=== PATIENT | female | born 1945 | race Caucasian/White ===

== ENCOUNTER → 2018-04-12 13:57 | Outpatient (CLI) | payer OTHER, SELFPAY ==
--- NOTE | 2018-04-12 | DI.US.S_ITS ---
PROCEDURE: US PERIPH VENOUS LOW EXTREM RT INDICATIONS: EDEMA TECHNIQUE: Real-time imaging, as well as color and pulse Doppler interrogation, were performed of the lower extremity deep veins from the inguinal ligament to the popliteal fossa. COMPARISON: None. FINDINGS: The deep veins are normally compressible, and free of intraluminal thrombus. Color and pulse Doppler demonstrate normal phasic intraluminal flow. There is normal augmentation response to distal compression maneuver. IMPRESSION: No visualized deep venous thrombosis. Dictated by: Heather Fregoso M.D. on 04/12/2018 at 16:43 Approved by: Heather Fregoso M.D. on 04/12/2018 at 16:44
== END ==
PROVIDERS: PCP Internal Medicine; Visit Provider Nurse Practitioner Gerontology
DX: R60.0 Localized edema (principal)
CPT/HCPCS: 93971

== ENCOUNTER → 2018-05-05 13:23 | Outpatient (CLI) | payer OTHER, SELFPAY ==
[2018-05-05 14:54] LABS: Cancer Antigen 125 22 U/mL (0-35)
--- NOTE | 2018-05-10 16:25 | PC.NURSE ---
Pt called wanting to know if PT would be a benefit to her hip/leg that is still sore. PT number given for pt to call for information.
== END ==
PROVIDERS: PCP Internal Medicine; Visit Provider Obstetrics & Gynecology Gynecologic Oncology
DX: C55 Malignant neoplasm of uterus, part unspecified (principal)
CPT/HCPCS: 36415; 86304

== ENCOUNTER → 2018-05-25 15:59 | Outpatient (CLI) | payer OTHER, SELFPAY ==
--- NOTE | 2018-05-25 | DI.RAD.S_ITS ---
PROCEDURE: XR HIP W PEL IF DONE RT 2V INDICATIONS: RIGHT HIP PAIN TECHNIQUE: 2 views of the hip were acquired. COMPARISON: None. FINDINGS: Bones: No fractures or dislocations. No suspicious bony lesions. The visualized pelvic ring appears intact. Moderate osteoarthritis with joint space thickening on the right, no trauma seen. Minimal degenerative change at the left hip Soft tissues: No suspicious soft tissue calcifications or masses. IMPRESSION: No trauma found. Asymmetric hip joint osteoarthritis moderate on the right and minimal on the left. Dictated by: Avi Howell M.D. on 05/25/2018 at 16:47 Approved by: Avi Howell M.D. on 05/25/2018 at 16:48
== END ==
PROVIDERS: PCP Internal Medicine; Visit Provider Internal Medicine
DX: M25.551 Pain in right hip (principal); M16.11 Unilateral primary osteoarthritis, right hip; M79.604 Pain in right leg
CPT/HCPCS: 73502

== ENCOUNTER → 2018-06-13 10:49 | Outpatient (CLI) | payer OTHER, SELFPAY ==
--- NOTE | 2018-06-13 | DI.US.S_ITS ---
PROCEDURE: US PERIP VENOUS LOW EXTREM RT INDICATIONS: PAIN IN RIGHT LEG TECHNIQUE: Real-time imaging, as well as color and pulse Doppler interrogation, were performed of the lower extremity deep veins from the inguinal ligament to the popliteal fossa. COMPARISON: [facility], [facility] VENOUS LOW EXTREM RT, 04/12/2018, 15:06. FINDINGS: The distal superficial femoral vein is suboptimally visualized otherwise the deep veins are normally compressible, and free of intraluminal thrombus. Color and pulse Doppler demonstrate normal phasic intraluminal flow. There is normal augmentation response to distal compression maneuver. IMPRESSION: Limited exam demonstrating no deep venous thrombosis within the right lower extremity. Dictated by: Alfa Collins [facility] Interpreted: Lukas Rodrigez MD on 06/13/2018 at 14:15 Approved by: Lukas Rodrigez M.D. on 06/13/2018 at 15:58
--- NOTE | 2018-06-13 13:05 | DI.MRI.S_ITS ---
PROCEDURE: MR PELVIS WO CON INDICATIONS: MALIGNANT NEOPLASM OF ENDOMETRIUM TECHNIQUE: Coronal HASTE, sagittal breath-hold T2 FSE; axial T1 FSE with and without fat saturation through the pelvis. Optional long- and short-axis uterine nonbreath-hold T2 FSE through the uterus. Sagittal or axial dynamic VIBE during administration of contrast. Post-contrast axial or coronal VIBE/2-D FLASH with fat saturation from the iliac crests to the symphysis. Optional diffusion weighted imaging and ADC may be performed. COMPARISON: None. FINDINGS: Image quality: Excellent. Uterus: Status post hysterectomy. Adnexa: Ovaries not seen. No adnexal masses are seen.. Urinary system: Bladder wall is normal in thickness. Distal ureters are non distended. Urethra appears normal in morphology. Nodes and vessels: No pelvic or inguinal adenopathy by size criteria. Iliac vessels are normal in size. Bowel and peritoneum: No pathologic free pelvic fluid. Inferior colon and small bowel loops are normal in caliber. Soft tissues: No inguinal hernias. No findings of pelvic floor incompetence in the absence of provocation. Bones: Marrow demonstrates normal overall signal. IMPRESSION: 1. Postsurgical sequelae. 2. No evidence of malignancy. Dictated by: Serina Garland M.D. on 06/13/2018 at 16:07 Approved by: Serina Garland M.D. on 06/13/2018 at 16:10
--- NOTE | 2018-06-13 13:07 | DI.MRI.S_ITS ---
PROCEDURE: MR HEAD/BRAIN WO CON INDICATIONS: VISUAL DISTURBANCE TECHNIQUE: Non-contrast axial T1 spin echo, axial T2 fast spin echo, sagittal and axial FLAIR, coronal T2 fast spin echo, axial gradient echo, axial diffusion and ADC through the brain. COMPARISON: None. FINDINGS: Image quality: Excellent. CSF spaces: Ventricles appear symmetric in size and shape. Basal cisterns are patent. No extra-axial fluid collections. Brain: No intracranial bleeds or mass effects. There is cerebral volume loss for age. There are periventricular and deep white matter chronic small vessel ischemic changes. Brainstem appears normal. Diffusion-weighted images show no acute ischemic insults. No chronic ischemic insults. Normal intravascular flow voids are present. There is incidental slight prominence of the pineal gland demonstrating T2 hyperintensity. No priors are available for comparison. There are several foci of hyperintense FLAIR signal within the mili and anterior cerebellum. They are not as well appreciated on other sequences. Skull and face: Calvarial bone marrow is normal in signal. Orbits are normal. Sinuses: Right maxillary sinus mucus retention cyst versus polyp is present. IMPRESSION: 1. No restricted diffusion to indicate acute ischemia. 2. Moderate atrophy and chronic microvascular ischemic changes. 3. Hyperintense foci within the mili and cerebellum, best seen on FLAIR SEQUENCE. Given lack of visualization of the sequences and symmetry and appearance, this is suspected to be artifactual. 4. Incidental note of pineal gland enlargement suspected to represent cyst. This is likely an incidental finding. Interval followup in 6 months with contrast is recommended to document stability, given this is a baseline examination. Dictated by: Heather Fregoso M.D. on 06/13/2018 at 15:43 Approved by: Heather Fregoso M.D. on 06/13/2018 at 16:02
== END ==
PROVIDERS: PCP Internal Medicine; Visit Provider Internal Medicine
DX: C54.1 Malignant neoplasm of endometrium (principal); M79.604 Pain in right leg; H53.9 Unspecified visual disturbance; E34.8 Other specified endocrine disorders
CPT/HCPCS: 70551; 72195; 93971

== ENCOUNTER → 2018-06-14 09:44 | Outpatient (CLI) | payer OTHER, SELFPAY ==
[2018-06-14 10:33] LABS: Blood Urea Nitrogen 17 mg/dL (7-17); Estimated Glomerular Filt Rate > 60.0 mL/min (>60)
--- NOTE | 2018-07-21 10:23 | ONC.NAV ---
Description: Financial Assistance Activity: Provided a check from the [email or web address] to reimburse patient for a wig purchase. No further needs identified at this time.
== END ==
PROVIDERS: PCP Internal Medicine; Visit Provider Internal Medicine
DX: C54.1 Malignant neoplasm of endometrium (principal); H53.9 Unspecified visual disturbance; M79.604 Pain in right leg
CPT/HCPCS: 82565; 84520

== ENCOUNTER → 2018-12-14 13:55 | Outpatient (CLI) | payer OTHER, SELFPAY ==
--- NOTE | 2018-12-14 13:56 | DI.NM.S_ITS ---
PROCEDURE: [place] [facility] RADIOPHARMACEUTICAL: 25 mCi Tc-99m labeled autologous red cells IV. INDICATIONS: Malignant neoplasm of corpus uteri, unspecified TECHNIQUE: After intravenous administration of autologous labeled WBC, FIJIAN views of the chest were obtained. A region of interest was drawn around the left ventricle to calculate left ventricle ejection fraction. COMPARISON: [place], MYOCARD PERF SPECT SINGLE, 03/04/2012, 9:37. [facility], [place], MYOCARDIAL PERFUSION, 10/11/2017, 14:37. FINDINGS: The heart and great vessels are of normal size and configuration. The left ventricle contracts normally, with left ventricle ejection fraction of 73.8%. Normal ejection fractions for this study are above 55%. A drop from baseline ejection fraction of greater than 10 percentage points or to below 45% on follow-up studies may be considered significant. IMPRESSION: Left ventricular ejection fraction is normal at 73.8%. Dictated by: Pablo Tyler M.D. on 12/14/2018 at 15:23 Approved by: Pablo Tyler M.D. on 12/14/2018 at 15:24
== END ==
PROVIDERS: Family Provider Internal Medicine; PCP Internal Medicine; Visit Provider Nurse Practitioner Gerontology
DX: C54.9 Malignant neoplasm of corpus uteri, unspecified (principal)
CPT/HCPCS: 78472; A9512; A9538

== ENCOUNTER → 2019-01-09 11:58 | Outpatient (CLI) | payer OTHER, SELFPAY ==
--- NOTE | 2019-01-09 12:00 | DI.US.S_ITS ---
PROCEDURE: PERIP VENOUS LOW EXTREM RT INDICATIONS: right leg swelling TECHNIQUE: Real-time imaging, as well as color and pulse Doppler interrogation, were performed of the lower extremity deep veins from the inguinal ligament to the popliteal fossa. COMPARISON: [facility], [facility] VENOUS LOW EXTREM RT, 06/13/2018, 12:13. [facility], PERIP VENOUS LOW EXTREM RT, 04/12/2018, 15:06. FINDINGS: The common femoral, femoral and popliteal veins are normally compressible, and free of intraluminal thrombus. Color and pulse Doppler demonstrate normal phasic intraluminal flow. There is normal augmentation response to distal compression maneuver. IMPRESSION: No DVT found. Dictated by: Avi Howell M.D. on 01/09/2019 at 12:31 Approved by: Avi Howell M.D. on 01/09/2019 at 12:31
== END ==
PROVIDERS: Family Provider Internal Medicine; PCP Internal Medicine; Visit Provider Internal Medicine Hematology & Oncology
DX: C54.9 Malignant neoplasm of corpus uteri, unspecified (principal); M79.89 Other specified soft tissue disorders
CPT/HCPCS: 93971; 99215

== ENCOUNTER → 2019-02-22 11:54 | Outpatient (CLI) | payer OTHER, SELFPAY ==
--- NOTE | 2019-02-22 | DI.RAD.S_ITS ---
PROCEDURE: XR HIP W PEL IF DONE RT 2V INDICATIONS: Unspecified osteoarthritis, unspecified site TECHNIQUE: AP pelvis with lateral view(s) of the right hip(s). COMPARISON: [facility], , XR HIP W PEL IF DONE RT 2V, 05/25/2018, 15:43. FINDINGS: Bones: No fractures or dislocations. Pelvic ring appears intact. No suspicious bony lesions. Soft tissues: The visualized bowel gas pattern is normal. No suspicious soft tissue calcifications. IMPRESSION: With reference to the prior right hip plain films 05/25/19 there has been little if any worsening of the degenerative hip joint osteoarthritis that was previously present, mild to moderate in overall severity. Dictated by: Avi Howell M.D. on 02/22/2019 at 12:45 Approved by: Avi Howell M.D. on 02/22/2019 at 12:46
== END ==
PROVIDERS: Family Provider Internal Medicine; PCP Internal Medicine; Visit Provider Internal Medicine
DX: M16.11 Unilateral primary osteoarthritis, right hip (principal)
CPT/HCPCS: 73502

== ENCOUNTER → 2019-03-29 10:58 | Outpatient (CLI) | payer OTHER, SELFPAY ==
--- NOTE | 2019-03-29 11:54 | DI.CT.S_ITS ---
PROCEDURE: CT CHEST ABD PEL W CON INDICATIONS: UTERINE CANCER TECHNIQUE: After the administration of oral and intravenous contrast, 5 mm thick sections acquired from the lung apices to the symphysis. 5 mm coronal and sagittal reformats were performed, with additional 7 mm coronal MIP reformats through the lungs. For radiation dose reduction, the following was used: automated exposure control, adjustment of mA and/or kV according to patient size. COMPARISON: [facility], MR, MR PELVIS WO/W CON, 06/13/2018, 13:24. [facility], CT, ABDOMEN/PELVIS WITH CONTRAST, 12/06/2017, 7:38. [facility], CR, ABDOMEN ACUTE SERIES, 12/06/2017, 6:02. [facility], [place], BONE SCAN WHOLE BODY, 09/29/2017, 14:08. [facility], CT, CHEST/ABD/PEL WITH CONTRAST, 10/07/2017, 9:45. FINDINGS: Image quality: Excellent. CHEST: Lungs and pleura: No acute airspace opacities. No pleural effusions or pneumothorax. Central and peripheral airways appear patent and normal in caliber. Mediastinum: Heart size is normal. No pericardial effusion. No mediastinal or hilar adenopathy by size criteria. Thoracic aorta and central pulmonary arteries are normal in size. Esophagus is normal in caliber. No hiatal hernia. Chest wall: No axillary or supraclavicular adenopathy by size criteria. Thyroid gland appears normal. ABDOMEN: Solid organs: Liver is normal in size and enhancement. Gallbladder has been previously resected. Biliary system is non dilated. Pancreas enhances normally. Spleen is normal in size and enhancement. No adrenal nodules. Kidneys demonstrate normal size and enhancement, without hydronephrosis. Peritoneum and bowel: Bowel loops demonstrate normal wall thickness and caliber. No free fluid or air. Nodes and vessels: No retroperitoneal or mesenteric adenopathy by size criteria. Aorta and inferior vena cava are normal in size. Miscellaneous: No ventral hernias. PELVIS: Genitourinary: Bladder wall thickness is normal. Interval hysterectomy. Miscellaneous: No inguinal hernias or adenopathy. Bones: No suspicious bony lesions. No vertebral body compression fractures. 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 No sign of metastatic disease is present. No adenopathy is found. No regional or distant metastatic disease is identified. Dictated by: Avi Howell M.D. on 03/29/2019 at 15:00 Approved by: Avi Howell M.D. on 03/29/2019 at 15:05
== END ==
PROVIDERS: Family Provider Internal Medicine; PCP Internal Medicine; Visit Provider Internal Medicine Hematology & Oncology
DX: C54.9 Malignant neoplasm of corpus uteri, unspecified (principal)
CPT/HCPCS: 71260; 74177; Q9967

== ENCOUNTER → 2019-06-21 09:03 | Outpatient (CLI) | payer OTHER, SELFPAY ==
[2019-06-21 09:58] LABS: Add Manual Diff / Slide Review NO; Basophils Absolute Auto 100 /uL (0-100); Basophils Percent Auto 0.9 % (0-2); Eosinophils Absolute Auto 400 /uL (0-450); Eosinophils Percent Auto 6.2 % (2-4); Hematocrit 39.4 % (36-46); Hemoglobin 13.8 g/dL (12.0-16.0); Lymphocytes Absolute Auto 1600 /uL (1100-4500); Mean Corpuscular Hemoglobin 31.7 PG (26-34); Mean Corpuscular Volume 90.8 fL (80-100); Monocytes Absolute Auto 500 /uL (0-900); Monocytes Percent Auto 8.6 % (3-14); Neutrophils Absolute Auto 3700 /uL (1500-7000); Neutrophils Percent Auto 58.3 % (50-75); Platelet Count 224 X10^3/uL (150-400); Red Blood Cell Count 4.34 X10^6/uL (4.0-5.2); Red Cell Distribution Width 12.8 % (11.6-14.8); White Blood Cell Count 6.3 X10^3/uL (4.5-11.0)
[2019-06-21 10:05] LABS: HEMOLYSIS < 15 (0-50); Iron 96 ug/dL (37-170)
[2019-06-21 10:12] LABS: Alanine Aminotransferase 43 IU/L (9-52); Albumin 4.4 g/dL (3.5-5.0); Albumin Globulin Ratio 1.9 (1.0-2.8); Alkaline Phosphatase 81 U/L (38-126); Aspartate Aminotransferase 34 IU/L (14-36); BUN Creatinine Ratio 31.3 (6-22); Bilirubin Total 0.9 mg/dL (0.2-1.3); Blood Urea Nitrogen 25 mg/dL (7-17); Calcium 10.7 mg/dL (8.4-10.2); Carbon Dioxide 31 mmol/L (22-32); Chloride 96 mmol/L (98-107); Cholesterol 198 mg/dL (140-199); Estimated Glomerular Filt Rate > 60.0 mL/min (>60); Globulin 2.3 g/dL (1.7-4.1); Glucose 235 mg/dL (80-110); HDL Cholesterol 49 mg/dL (40-60); HEMOLYSIS < 15 (0-50); LDL Cholesterol Calculated 96 mg/dL (<100); Sodium 138 mmol/L (137-145); Total Protein 6.7 g/dL (6.3-8.2); Triglycerides 264 mg/dL (35-150)
[2019-06-21 10:17] LABS: Percent Iron Saturation 31 % (15-50); Total Iron Binding Capacity 306 ug/dL (265-497); Transferrin 261 mg/dL (206-381)
[2019-06-21 11:00] LABS: Vitamin B12 438 pg/mL (239-931)
[2019-06-24 17:38] LABS: Vitamin B1 166 nmol/L (78-185)
[2019-06-24 19:34] LABS: Vitamin B6 19.4 ng/mL (2.1-21.7)
== END ==
PROVIDERS: PCP Internal Medicine; Visit Provider Internal Medicine
DX: C54.1 Malignant neoplasm of endometrium (principal); E78.2 Mixed hyperlipidemia; E53.9 Vitamin B deficiency, unspecified; E61.1 Iron deficiency
CPT/HCPCS: 36415; 80053; 80061; 82607; 82728; 83540; 83550; 84207; 84425; 85025

== ENCOUNTER → 2019-11-02 16:18 | Outpatient (ROUT) | payer OTHER, SELFPAY ==
[2019-11-02 16:25] LABS: Add Manual Diff / Slide Review NO; Basophils Absolute Auto 0 /uL (0-100); Basophils Percent Auto 0.5 % (0-2); Eosinophils Absolute Auto 400 /uL (0-450); Eosinophils Percent Auto 3.7 % (2-4); Hematocrit 36.5 % (36-46); Hemoglobin 12.4 g/dL (12.0-16.0); Lymphocytes Absolute Auto 1500 /uL (1100-4500); Lymphocytes Percent Auto 14.5 % (25-40); Mean Corpuscular Hemoglobin 31.3 PG (26-34); Monocytes Absolute Auto 900 /uL (0-900); Monocytes Percent Auto 9.2 % (3-14); Neutrophils Absolute Auto 7300 /uL (1500-7000); Neutrophils Percent Auto 72.1 % (50-75); Platelet Count 494 X10^3/uL (150-400); Red Blood Cell Count 3.96 X10^6/uL (4.0-5.2); Red Cell Distribution Width 12.7 % (11.6-14.8); White Blood Cell Count 10.2 X10^3/uL (4.5-11.0)
[2019-11-02 16:38] LABS: Alanine Aminotransferase 62 IU/L (<35); Albumin 4.3 g/dL (3.5-5.0); Albumin Globulin Ratio 1.6 (1.0-2.8); Alkaline Phosphatase 134 U/L (38-126); Aspartate Aminotransferase 40 IU/L (14-36); Bilirubin Total 1.1 mg/dL (0.2-1.3); Blood Urea Nitrogen 15 mg/dL (7-17); Calcium 11.3 mg/dL (8.4-10.2); Carbon Dioxide 26 mmol/L (22-32); Chloride 98 mmol/L (98-107); Estimated Glomerular Filt Rate > 60.0 mL/min (>60); Globulin 2.7 g/dL (1.7-4.1); Glucose 152 mg/dL (80-110); HEMOLYSIS < 15 (0-50); Lipase 34 U/L (23-300); Potassium 3.9 mmol/L (3.4-5.1); Sodium 138 mmol/L (137-145)
== END ==
PROVIDERS: PCP Internal Medicine; Visit Provider Internal Medicine
DX: R11.2 Nausea with vomiting, unspecified (principal)
CPT/HCPCS: 80053; 83690; 85025

== ENCOUNTER → 2019-12-01 13:52 | Outpatient (CLI) | payer OTHER, SELFPAY ==
[2019-12-01 15:47] LABS: Add Manual Diff / Slide Review NO; Basophils Absolute Auto 100 /uL (0-100); Basophils Percent Auto 0.6 % (0-2); Eosinophils Absolute Auto 500 /uL (0-450); Hematocrit 38.5 % (36-46); Hemoglobin 13.2 g/dL (12.0-16.0); Lymphocytes Absolute Auto 2000 /uL (1100-4500); Lymphocytes Percent Auto 20.3 % (25-40); Mean Corpuscular HGB Conc 34.3 % (30-36); Mean Corpuscular Hemoglobin 30.3 PG (26-34); Mean Corpuscular Volume 88.4 fL (80-100); Monocytes Absolute Auto 600 /uL (0-900); Monocytes Percent Auto 6.4 % (3-14); Neutrophils Absolute Auto 6600 /uL (1500-7000); Neutrophils Percent Auto 67.7 % (50-75); Platelet Count 354 X10^3/uL (150-400); Red Blood Cell Count 4.36 X10^6/uL (4.0-5.2); Red Cell Distribution Width 13.5 % (11.6-14.8); White Blood Cell Count 9.7 X10^3/uL (4.5-11.0)
[2019-12-01 16:08] LABS: Blood Urea Nitrogen 15 mg/dL (7-17); Carbon Dioxide 22 mmol/L (22-32); Chloride 101 mmol/L (98-107); Estimated Glomerular Filt Rate > 60.0 mL/min (>60); Glucose 222 mg/dL (80-110); HEMOLYSIS < 15 (0-50); Potassium 4.2 mmol/L (3.4-5.1); Sodium 137 mmol/L (137-145)
== END ==
PROVIDERS: PCP Internal Medicine; Referring Provider Internal Medicine; Visit Provider Registered Nurse Obstetric, High-Risk
DX: R19.7 Diarrhea, unspecified (principal)
CPT/HCPCS: 36415; 80048; 85025

== ENCOUNTER → 2020-07-03 08:21 | Outpatient (CLI) | payer OTHER, SELFPAY ==
[2020-07-03 10:18] LABS: Aspartate Aminotransferase 33 IU/L (14-36); BUN Creatinine Ratio 25.6 (6-22); Blood Urea Nitrogen 20 mg/dL (7-17); Calcium 10.5 mg/dL (8.4-10.2); Carbon Dioxide 33 mmol/L (22-32); Chloride 100 mmol/L (98-107); Cholesterol 177 mg/dL (140-199); Estimated Glomerular Filt Rate > 60.0 mL/min (>60); Glucose 141 mg/dL (80-110); HDL Cholesterol 53 mg/dL (40-60); HEMOLYSIS < 15 (0-50); LDL Cholesterol Calculated 70 mg/dL (<100); Potassium 4.2 mmol/L (3.4-5.1); Sodium 138 mmol/L (137-145); Triglycerides 269 mg/dL (35-150)
[2020-07-03 10:36] LABS: TSH w/ Reflex to FT4 2.14 uIU/mL (0.47-4.68)
== END ==
PROVIDERS: PCP Internal Medicine; Referring Provider Internal Medicine; Visit Provider Internal Medicine
DX: I10 Essential (primary) hypertension (principal); E78.2 Mixed hyperlipidemia; E11.40 Type 2 diabetes mellitus with diabetic neuropathy, unspecified; E04.2 Nontoxic multinodular goiter
CPT/HCPCS: 36415; 80048; 80061; 84443; 84450

== ENCOUNTER → 2021-01-02 11:00 | Outpatient (CLI) | payer OTHER, SELFPAY ==
[2021-01-02 12:13] LABS: Add Manual Diff / Slide Review NO; Basophils Absolute Auto 100 /uL (0-100); Basophils Percent Auto 0.8 % (0-2); Eosinophils Absolute Auto 200 /uL (0-450); Eosinophils Percent Auto 3.2 % (2-4); Hematocrit 40.3 % (36-46); Hemoglobin 13.7 g/dL (12.0-16.0); Lymphocytes Absolute Auto 2100 /uL (1100-4500); Lymphocytes Percent Auto 30.2 % (25-40); Mean Corpuscular Hemoglobin 31.1 PG (26-34); Mean Corpuscular Volume 91.4 fL (80-100); Monocytes Absolute Auto 600 /uL (0-900); Neutrophils Absolute Auto 4000 /uL (1500-7000); Neutrophils Percent Auto 56.8 % (50-75); Platelet Count 265 X10^3/uL (150-400); Red Blood Cell Count 4.41 X10^6/uL (4.0-5.2); Red Cell Distribution Width 12.7 % (11.6-14.8)
[2021-01-02 12:33] LABS: Alanine Aminotransferase 70 IU/L (<35); Albumin 4.5 g/dL (3.5-5.0); Alkaline Phosphatase 87 U/L (38-126); Aspartate Aminotransferase 68 IU/L (14-36); Bilirubin Total 0.8 mg/dL (0.2-1.3); Blood Urea Nitrogen 20 mg/dL (7-17); Calcium 10.5 mg/dL (8.4-10.2); Carbon Dioxide 28 mmol/L (22-32); Chloride 98 mmol/L (98-107); Cholesterol 171 mg/dL (140-199); Estimated Glomerular Filt Rate > 60.0 mL/min (>60); Globulin 2.3 g/dL (1.7-4.1); Glucose 168 mg/dL (80-110); HDL Cholesterol 48 mg/dL (40-60); HEMOLYSIS < 15 (0-50); LDL Cholesterol Calculated 75 mg/dL (<100); Potassium 3.8 mmol/L (3.4-5.1); Sodium 137 mmol/L (137-145); Total Protein 6.8 g/dL (6.3-8.2); Triglycerides 238 mg/dL (35-150)
[2021-01-02 12:57] LABS: TSH w/ Reflex to FT4 0.56 uIU/mL (0.47-4.68)
[2021-01-03 08:10] LABS: Parathyroid Hormone Int 68 pg/mL (15-65)
== END ==
PROVIDERS: PCP Internal Medicine; Referring Provider Internal Medicine; Visit Provider Internal Medicine
DX: R42 Dizziness and giddiness (principal); E21.3 Hyperparathyroidism, unspecified; E78.2 Mixed hyperlipidemia
CPT/HCPCS: 36415; 80053; 80061; 83970; 84443; 85025

== ENCOUNTER → 2021-07-28 10:08 | Outpatient (CLI) | payer OTHER, SELFPAY ==
[2021-07-28 14:12] LABS: COVID19 -Nasal RAPID Negative (Negative)
== END ==
PROVIDERS: PCP Internal Medicine; Visit Provider Surgery
DX: Z20.822 Contact with and (suspected) exposure to COVID-19 (principal); Z01.812 Encounter for preprocedural laboratory examination
CPT/HCPCS: 87635; C9803

== ENCOUNTER 2021-07-29 10:02 | Day surgery (SDC) | payer OTHER, SELFPAY ==
[2021-07-29 10:17] VITALS: BP 174/89; PULSE 81; RESP 16; TEMP 36.2; O2SAT 98; BMI 27.4
[2021-07-29] MEDS: LACTATED RINGERS 1,000 ML 42 ML IV (10:28)
--- NOTE | 2021-07-29 10:32 | PM.HP.1 ---
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 She reports no issues associated with the Port-A-Cath. 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) Edema HTN (hypertension) Hypercholesteremia Hyperparathyroidism Neuropathy Non-toxic multinodular goiter Osteoarthrosis Port-A-Cath in place (11/23/17) Surgical History History of left mastectomy (2001) History of right mastectomy (2003) History of robot-assisted laparoscopic hysterectomy Hx of cholecystectomy Hx of lithotripsy Family & Social History Social History: household members spouse Tobacco & Substance use: Smoking Status Never smoker alcohol intake current alcohol intake frequency a few times a month Substance Use Type does not use Meds Home Medications and Allergies Home Medications Medication Instructions Recorded Confirmed Type carvedilol 12.5 mg tablet 12.5 mg PO BID 04/12/18 07/29/21 History losartan 100 mg tablet 100 mg PO DAILY 04/12/18 07/29/21 History simvastatin 20 mg tablet 20 mg PO QPM 04/12/18 07/29/21 History chlorthalidone 25 mg tablet 25 mg PO DAILY 12/06/18 07/29/21 History gabapentin 300 mg capsule 1,200 mg PO DAILY 12/19/18 07/29/21 History acetaminophen 325 mg tablet 3,000 mg DAILY 02/09/19 07/24/21 History (Tylenol) duloxetine 20 mg capsule,delayed 20 mg PO DAILY 03/16/19 07/29/21 History release metformin 500 mg tablet 500 mg PO BID 07/24/21 07/29/21 History Allergies Allergy/AdvReac Type Severity Reaction Status Date / Time Sulfa (Sulfonamide Allergy Severe SKING Verified 07/29/21 10:07 Antibiotics) BURNING, [SULFA (SULFONAMIDE RASH ANTIBIOTICS)] codeine [CODEINE] AdvReac Intermediate VOMITING Verified 07/29/21 10:07 hydroxyzine [HYDROXYZINE] AdvReac Intermediate NAUSEA Verified 07/29/21 10:07 Exam Vital Signs (past 8 hours): - 07/29/21 10:17 Temperature 97.2 F L Pulse Rate 81 Respiratory Rate 16 Blood Pressure 174/89 H Pulse Oximetry 98 Oxygen Delivery Method Room Air Narrative Exam Narrative: Constitutional-She is oriented to person, place and time. No apparent distress Cardiovascular- regular rate, no peripheral edema Pulmonary-unlabored respiratory effort, no audible wheezing Abdominal-soft, non-tender, non-distended Assessment & Plan Assessment and plan (1) Port-A-Cath in place: Status: Acute Assessment & Plan narrative: 75-year-old woman history of uterine sarcoma here for Port-A-Cath removal. Technical details of procedure were discussed with the patient. Operative risks including bleeding, infection, embolism were discussed. Her questions have been answered she is in agreement with this plan. Time Spent With Patient Critical Care time: I spent a total of [] minutes of critical care time on this patient's care today; this time is exclusive of procedural time.
[2021-07-29] MEDS: CEFAZOLIN 1 GM VIAL 2 GM IV (10:45)
--- NOTE | 2021-07-29 10:59 | SUR.OPER ---
Supine on padded OR bed, head on pillow, arms secured on padded arm boards at <90 degrees abduction, legs uncrossed, safety belt at thigh, tape over blanket over lower legs.
[2021-07-29] MEDS: BUPIVACAINE 0.25% (PF) VIAL 30 ML INJ (11:02)
[2021-07-29 11:10] VITALS: BP 140/70; PULSE 67; RESP 12; TEMP 36.1; O2SAT 93
[2021-07-29 11:15] VITALS: BP 134/72; PULSE 66; RESP 12; O2SAT 94
--- NOTE | 2021-07-29 11:16 | PM.OP.1 ---
Operative Date/Time/Diagnoses Date of procedure: 07/29/21 Time of procedure: 11:16 Pre-op diagnosis: port a cath Post-op diagnosis: same Procedure & Clinicians Procedure: removal of port a cath Same procedure as scheduled: Yes Indications: completion of chemotherapy Surgeon: Zen Howard Click Yes if Unassisted: Yes Anesthesia Type: General Operative Notes Findings: port and cather removed intact Specimen(s): none sent Estimated Blood Loss (mL): 5 Procedure in detail: Patient brought to the operating room placed supine on the table. Bilateral lower extremity compression devices were applied. She received 2 g of Ancef prior to skin incision. anesthesia was induced and she was intubated with an LMA. 0.25% bupivacaine was infiltrated in the skin overlying the Port-A-Cath. Incision with the knife was made through the skin and subcutaneous tissues. The Port-A-Cath was grasped and the anchoring sutures were removed. A Vicryl suture was then placed around the insertion site of the catheter and this was tied down at that same time that the catheter was withdrawn. The specimen was passed off the field. The wound was irrigated hemostasis was achieved. The subcutaneous tissue was reapproximated using Vicryl suture and skin closed with running Monocryl suture followed by Dermabond and Steri-Strips. Patient emerged from anesthesia and was transferred to the recovery room in stable condition. Complications: none Post-operative Condition: stable Disposition: same day surgery
[2021-07-29 11:20] VITALS: BP 145/74; PULSE 63; RESP 14; O2SAT 95
[2021-07-29 11:26] VITALS: BP 150/77; PULSE 66; RESP 12; O2SAT 96
[2021-07-29 11:37] VITALS: BP 146/78; PULSE 60; RESP 12; O2SAT 97
== END 2021-07-29 11:47 | disposition home or self-care (01) ==
PROVIDERS: PCP Internal Medicine; Referring Provider Surgery; Visit Provider Surgery
PROC: (CPT 36590; principal; 2021-07-29 10:45)
DX: Z45.2 Encounter for adjustment and management of vascular access device (principal); I10 Essential (primary) hypertension; E11.9 Type 2 diabetes mellitus without complications; Z79.84 Long term (current) use of oral hypoglycemic drugs
CPT/HCPCS: 36590; 82962; J0690; J1100; J2405; J2704; J3010

== ENCOUNTER → 2022-02-18 09:58 | Outpatient (CLI) | payer OTHER, SELFPAY | PROVIDERS: PCP Internal Medicine; Visit Provider Physician Assistant | DX: N39.0 Urinary tract infection, site not specified (principal) | CPT/HCPCS: 87086 ==

== ENCOUNTER → 2022-03-26 15:37 | Outpatient (CLI) | payer OTHER, SELFPAY ==
[2022-03-26 16:42] LABS: Hematocrit 41.5 % (36-46); Hemoglobin 14.2 g/dL (12.0-16.0); Mean Corpuscular HGB Conc 34.1 % (30-36); Mean Corpuscular Hemoglobin 31.3 PG (26-34); Mean Corpuscular Volume 91.9 fL (80-100); Platelet Count 260 X10^3/uL (150-400); Red Blood Cell Count 4.52 X10^6/uL (4.0-5.2); Red Cell Distribution Width 12.6 % (11.6-14.8); White Blood Cell Count 7.9 X10^3/uL (4.5-11.0)
[2022-03-26 17:12] LABS: Alanine Aminotransferase 35 IU/L (<35); Albumin 4.8 g/dL (3.5-5.0); Alkaline Phosphatase 64 U/L (38-126); Aspartate Aminotransferase 37 IU/L (14-36); BUN Creatinine Ratio 27.7 (6-22); Bilirubin Total 0.9 mg/dL (0.2-1.3); Blood Urea Nitrogen 23 mg/dL (7-17); Calcium 10.4 mg/dL (8.4-10.2); Carbon Dioxide 29 mmol/L (22-32); Chloride 99 mmol/L (98-107); Cholesterol 173 mg/dL (140-199); Estimated Glomerular Filt Rate > 60 mL/min (>60); Globulin 2.4 g/dL (1.7-4.1); Glucose 100 mg/dL (80-110); HDL Cholesterol 48 mg/dL (40-60); HEMOLYSIS < 15 (0-50); LDL Cholesterol Calculated 67 mg/dL (<100); Potassium 3.9 mmol/L (3.4-5.1); Sodium 138 mmol/L (137-145); Total Protein 7.2 g/dL (6.3-8.2); Triglycerides 288 mg/dL (35-150)
[2022-03-26 17:43] LABS: TSH w/ Reflex to FT4 0.56 uIU/mL (0.47-4.68)
[2022-03-26 18:55] LABS: Creatinine Urine Random 336.6 mg/dL
[2022-03-26 19:00] LABS: Microalbumin Urine Random 2.7 mg/dL (0-1.6)
[2022-03-27 02:29] LABS: Hemoglobin A1C% w Est Avg Glu 5.7 % (4.0-6.0)
== END ==
PROVIDERS: PCP Internal Medicine; Referring Provider Internal Medicine; Visit Provider Internal Medicine
DX: E11.42 Type 2 diabetes mellitus with diabetic polyneuropathy (principal); E78.2 Mixed hyperlipidemia; I10 Essential (primary) hypertension; M79.89 Other specified soft tissue disorders
CPT/HCPCS: 36415; 80053; 80061; 82043; 82570; 83036; 84443; 85027

== ENCOUNTER → 2022-05-11 13:37 | Outpatient (CLI) | payer OTHER, SELFPAY ==
--- NOTE | 2022-05-11 13:38 | DI.RAD.S_ITS ---
PROCEDURE: XR KNEE RT 3V INDICATIONS: intermittent, severe right knee pain TECHNIQUE: 3 views of the knee were acquired. COMPARISON: None. FINDINGS: Bones: Tricompartmental degenerative changes with medial joint space narrowing and tricompartmental osteophytes consistent with osteoarthritis. Soft tissues: No joint effusion. No suspicious soft tissue calcifications. Arterial calcifications. IMPRESSION: Osteoarthritis of the right knee. Dictated by: Zachary Oscar M.D. on 05/11/2022 at 14:44 Approved by: Zachary Oscar M.D. on 05/11/2022 at 14:45
== END ==
PROVIDERS: PCP Internal Medicine; Referring Provider Family Medicine; Visit Provider Family Medicine
DX: M17.11 Unilateral primary osteoarthritis, right knee (principal); M25.561 Pain in right knee
CPT/HCPCS: 73562

== ENCOUNTER 2022-09-01 08:44 | Outpatient (CLI) | payer OTHER, SELFPAY ==
[2022-09-01] VITALS (7 sets, daily range): BP systolic 152–199; BP diastolic 92–102; PULSE 80–88; RESP 11–18; TEMP 36.6; O2SAT 95–100
--- NOTE | 2022-09-01 08:47 | DI.RAD.S_ITS ---
PROCEDURE: PAIN L/S TRANSFORAMINAL INJECT INDICATIONS: SPONDYLOSIS COMPARISON: None. FINDINGS: Fluoroscopic spot filming was performed to verify placement of spinal needles at the right L4-L5 neural foraminal space level(s), as labeled on the films. Appropriate location(s) of the needle tip(s) was confirmed by injection of iodinated contrast. IMPRESSION: Access needle in the L4-L5 neural foramen space for transforaminal epidural steroid injection. Dictated by: Shaista Alcantar MD, PhD on 09/01/2022 at 13:40 Approved by: Shaista Alcantar MD, PhD on 09/01/2022 at 13:40
[2022-09-01] MEDS: MIDAZOLAM 2 MG/2 ML VIAL IV (11:52)
[2022-09-01] MEDS: BUPIVACAINE 0.25% (PF) VIAL 2 ML INJ (11:56)
[2022-09-01] MEDS: IOPAMIDOL 15 ML VIAL 3 ML INJ (11:56)
[2022-09-01] MEDS: BETAMETHASONE 30 MG/5 ML MDV 6 MG INJ (11:56)
[2022-09-01] MEDS: DEXAMETHASONE 10 MG/ML VIAL 20 MG INJ (11:57)
--- NOTE | 2022-09-01 12:09 | P.PCN_ITS ---
Date/Time/Diagnoses Date of procedure: 09/01/22 Time of procedure: 12:09 Pre-procedure diagnosis: 1. FORAMINAL STENOSIS WITH LE SYMPTOMS Post-procedure diagnosis: same Procedure Notes Procedure: 1. FLUOROSCOPICALLY GUIDED CONTRAST CONTROLLED TRANSFORAMINAL EPIDURAL STEROID INJECTION - RIGHT L4/5 TFESI Indications: Ana Cristina is referred by Dr. Navas for treatment of Foraminal Stenosis with Right LE Symptoms Physician: Saran Bocanegra Total Fluoroscopy time (seconds): 9 Total sedation minutes: 14 Complications: none Procedure in detail & Post-procedure care: FINDINGS Foraminal Nerve Root Compression secondary to disc disease and facet hypertrophy DESCRIPTION OF PROCEDURE Following review of allergy and review of potential side effects and complications, including, but not necessarily limited to, infection, allergic reaction, local tissue breakdown, stroke, temporary or permanent nerve injury, paralysis, and possible , the patient indicated that the patient understood and agreed to proceed. An informed consent document was signed by the patient, witnessed by a nurse, and placed in the patient's chart. Additionally, other treatment options including medications, modalities, and physical therapy were reviewed with the patient. After review of previous anaesthesic history and IV conscious sedation the patient was deemed safe to proceed with today?s procedure with IV conscious sedation as ASA class II designation. Safety time-out was performed to confirm patient ID, procedure to be performed and site of procedure. IV sedation was accomplished with a combination of 2mg of Versed was administered by the RN after DO order, titrated to patient comfort during the course of the procedure while the patient remained responsive to all verbal commands In the prone position following sterile prep and drape of the lumbar region, the right L4/5 posterior neuroforamen was identified fluoroscopically. The skin was anesthetized via a 25-gauge 1.5-inch needle with 1% lidocaine solution. At this point, a 25-gauge 3.5-inch spinal needle was atraumatically introduced and advanced under fluoroscopic guidance through the posterior right L4/5 neuroforamen to approximately the anterior aspect of the canal. Depth was confirmed on lateral view. Following negative aspiration, injection of approximately 1.5cc of Isovue 200 under live fluoroscopy in the AP view con firmed excellent flow along the nerve root, into the epidural space without vascular or intrathecal uptake observed Radiological data, including multiple fluoroscopic views of the lumbosacral spine, reveal a spinal needle at the right L4/5 posterior neuroforamen. Subsequent views show flow of contrast material flowing superiorly and inferiorly along the nerve root confirming epidural flow. Subsequently, a test dose of 1.5 cc of 1% lidocaine solution was administered and patient was observed for two minutes for signs or symptoms of complications, including abdominal pain, shortness of breath, bilateral upper or lower extremity weakness, nausea and vomiting, prior to steroid injection. At this point, a total of 3cc or 20mg of dexamethasone and 6mg of betamethasone was injected without incident. The procedure tolerated the procedure well without signs or symptoms of complications prior to transfer to the recovery area continued monitoring without incident. The patient was then transferred to the recovery area where they were observed for an appropriate time after the injection. The patient reported a VAS score of 7 prior to the procedure and a post- procedure VAS of 0. POST OP INSTRUCTIONS The patient was provided a Pain Log to continue to record their response to the target-specific procedure prior to follow-up visit with their referring p hysician. Additionally, specific post-injection care instructions and a contact number to our office were provided if concerns arise regarding possible complications associated with the procedure are suspected.
== END 2022-09-01 12:26 | disposition home or self-care (01) ==
LOC: RAD 08:45
PROVIDERS: PCP Internal Medicine; Referring Provider Physical Medicine & Rehabilitation; Visit Provider Physical Medicine & Rehabilitation
DX: M48.061 Spinal stenosis, lumbar region without neurogenic claudication (principal); M51.16 Intervertebral disc disorders with radiculopathy, lumbar region
CPT/HCPCS: 64483; 99152; J0702; J1100; J2250; J3490

== ENCOUNTER 2022-11-05 09:52 | Outpatient (CLI) | payer OTHER, SELFPAY ==
[2022-11-05] VITALS (7 sets, daily range): BP systolic 121–185; BP diastolic 74–109; PULSE 65–76; RESP 12–20; TEMP 36.2; O2SAT 96–99
--- NOTE | 2022-11-05 09:54 | DI.RAD.S_ITS ---
PROCEDURE: PAIN L INTERLAMINAR/CAUDAL INJ INDICATIONS: SPONDYLOSIS COMPARISON: [facility], CR, XR LUMBAR SPINE WITH FLEXION EXTENSION 5 VIEWS, 10/17/2021, 9:53. FINDINGS: Fluoroscopic spot filming was performed to verify placement of spinal needles at the L4-L5 level(s), as labeled on the films. Appropriate location(s) of the needle tip(s) was confirmed by injection of iodinated contrast. IMPRESSION: Intraoperative guidance provided. Dictated by: Vinicio Mike M.D. on 11/05/2022 at 15:02 Approved by: Vinicio Mike M.D. on 11/05/2022 at 15:03
[2022-11-05] MEDS: BUPIVACAINE 0.25% (PF) VIAL 2 ML INJ (11:04)
[2022-11-05] MEDS: IOPAMIDOL 15 ML VIAL 3 ML INJ (11:04)
[2022-11-05] MEDS: DEXAMETHASONE 10 MG/ML VIAL 20 MG INJ (11:05)
[2022-11-05] MEDS: BETAMETHASONE 30 MG/5 ML MDV 6 MG INJ (11:05)
--- NOTE | 2022-11-05 11:19 | P.PCN_ITS ---
Date/Time/Diagnoses Date of procedure: 11/05/22 Time of procedure: 11:20 Pre-procedure diagnosis: 1. HNP WITH RADICULAR FEATURES, 2. MULTILEVEL CENTRAL STENOSIS, Post-procedure diagnosis: same Procedure Notes Procedure: 1. FLUOROSCOPICALLY GUIDED CONTRAST CONTROLLED INTERLAMINAR EPIDURAL STEROID INJECTION -L4/5 Indications: Ana Cristina is referred by Dr. Navas for treatment of Bilateral Foraminal Stenosis R>L LE symptoms. Physician: Saran Bocanegra Total Fluoroscopy time (seconds): 10 Total sedation minutes: 0 Complications: none Procedure in detail & Post-procedure care: FINDINGS Multilevel Central Spinal Stenosis with Nerve Root Compression DESCRIPTION OF PROCEDURE Fluoroscopically guided, contrast-controlled L4/5 translaminar epidural steroid injection. Following review of allergy and review of potential side effects and complications, including, but not necessarily limited to, infection, allergic reaction, local tissue breakdown, temporary as well as permanent nerve injury, paralysis, stroke and possible , the patient indicated that the patient understood and agreed to proceed. An informed consent document was signed by the patient, witnessed by a nurse, and placed in the patient's chart. Additionally, other treatment options including modalities, medications, and physical therapy were reviewed with the patient. After review of previous anaesthesic history and IV conscious sedation the patient was deemed safe to proceed with today?s procedure with IV conscious sedation as ASA class II designation. Safety time-out was performed to confirm patient ID, procedure to be performed and site of procedure. Ana Cristina had taken a PO Valium prior. IV sedation was attempted but IV access was not obtained and thus was not administered by the RN after DO order, titrated to patient comfort during the course of the procedure while the patient remained responsive to all verbal commands In the prone position, following sterile prep and drape of the lumbar region, the L4/5 translaminar space was identified fluoroscopically. The skin was anesthetized via a 25-gauge, 1.5inch needle with 1% lidocaine solution. At this point, a 22-gauge short bevel spinal needle was atraumatically introduced and advanced under fluoroscopic guidance into the region of the L4/5 translaminar space. Depth was confirmed on lateral view. Radiological data, including multiple fluoroscopic views of the lumbar spine, reveal a spinal needle at the L4/5 translaminar space. Lateral views then show placement of the needle in the epidural space. Subsequent views show contrast material flowing superiorly and inferiorly in the epidural space. No vascular or intrathecal uptake is observed. At this point, using loss of resistance technique with saline and air, the epidu ral space was entered. This was confirmed following negative aspiration with injection of approximately 1.5cc of Isovue 200, showing excellent epidural flow without vascular or intrathecal uptake. At this point, 1cc of 1% lidocaine solution combined with 3cc or 20mg of dexamethasone and 6mg betamethasone was injected without incident. The patient tolerated the procedure well without signs or symptoms of complications prior to transfer to the recovery area continued monitoring without incident. The patient was then transferred to the recovery area where they were observed for an appropriate period of time after the injection. The patient reported a VAS score of 6 prior to the procedure and a post- procedure VAS of 0. POST OP INSTRUCTIONS The patient was provided a Pain Log to continue to record their response to the target-specific procedure prior to follow-up visit with their referring physician. Additionally, specific post-injection care instructions and a contact number to our office were provided if concerns arise regarding possible complications associated with the procedure are suspected.
--- NOTE | 2022-11-05 11:22 | PC.NURSE ---
Patient with no sedation for procedure due to difficult IV stick.
== END 2022-11-05 11:26 | disposition home or self-care (01) ==
LOC: RAD 09:53
PROVIDERS: PCP Internal Medicine; Referring Provider Physical Medicine & Rehabilitation; Visit Provider Physical Medicine & Rehabilitation
DX: M51.16 Intervertebral disc disorders with radiculopathy, lumbar region (principal); M48.061 Spinal stenosis, lumbar region without neurogenic claudication
CPT/HCPCS: 62323; J0702; J1100; J2250; J3490

== ENCOUNTER → 2023-01-07 11:51 | Outpatient (CLI) | payer OTHER, SELFPAY ==
[2023-01-07 13:29] LABS: Alanine Aminotransferase 60 IU/L (<35); Albumin 4.5 g/dL (3.5-5.0); Alkaline Phosphatase 72 U/L (38-126); Aspartate Aminotransferase 51 IU/L (14-36); BUN Creatinine Ratio 22.1 (6-22); Bilirubin Total 1.1 mg/dL (0.2-1.3); Blood Urea Nitrogen 19 mg/dL (7-17); Calcium 10.8 mg/dL (8.4-10.2); Carbon Dioxide 30 mmol/L (22-32); Chloride 97 mmol/L (98-107); Cholesterol 161 mg/dL (140-199); Estimated Glomerular Filt Rate > 60 mL/min (>60); Globulin 2.2 g/dL (1.7-4.1); Glucose 170 mg/dL (80-110); HDL Cholesterol 50 mg/dL (40-60); HEMOLYSIS < 15 (0-50); LDL Cholesterol Calculated 58 mg/dL (<100); Potassium 4.7 mmol/L (3.4-5.1); Sodium 137 mmol/L (137-145); Total Protein 6.7 g/dL (6.3-8.2); Triglycerides 266 mg/dL (35-150)
[2023-01-07 16:58] LABS: Hep C Virus Ab w/Reflex Quant NEGATIVE s/c (NEGATIVE)
== END ==
PROVIDERS: PCP Internal Medicine; Referring Provider Internal Medicine; Visit Provider Internal Medicine
DX: E11.42 Type 2 diabetes mellitus with diabetic polyneuropathy (principal); E78.2 Mixed hyperlipidemia; I10 Essential (primary) hypertension; K75.81 Nonalcoholic steatohepatitis (NASH)
CPT/HCPCS: 36415; 80053; 80061; 83036; 86803

== ENCOUNTER → 2023-02-12 15:04 | Outpatient (CLI) | payer OTHER, SELFPAY ==
--- NOTE | 2023-02-12 15:05 | DI.US.S_ITS ---
PROCEDURE: US PERIPH VENOUS LOW EXTREM LT INDICATIONS: DEEP VEIN THROMBOSIS TECHNIQUE: Real-time imaging, as well as color and pulse Doppler interrogation, were performed of the lower extremity deep veins from the inguinal ligament to the popliteal fossa. COMPARISON: None. FINDINGS: The common femoral, femoral and popliteal veins are normally compressible, and free of intraluminal thrombus. Color and pulse Doppler demonstrate normal phasic intraluminal flow. There is normal augmentation response to distal compression maneuver. IMPRESSION: No DVT in the left lower extremity. Dictated by: Pablo Tyler M.D. on 02/12/2023 at 15:46 Approved by: Pablo Tyler M.D. on 02/12/2023 at 15:47
== END ==
PROVIDERS: PCP Internal Medicine; Referring Provider Internal Medicine; Visit Provider Internal Medicine
DX: I82.409 Acute embolism and thrombosis of unspecified deep veins of unspecified lower extremity (principal)
CPT/HCPCS: 93971

== ENCOUNTER 2023-02-17 23:48 | Inpatient (IN) | payer OTHER, SELFPAY ==
[2023-02-17 23:55] VITALS: PULSE 110; RESP 22; O2SAT 94
--- NOTE | 2023-02-17 23:56 | ED.GENADULT ---
HPI - General Adult General Chief complaint: Altered Mental Status Stated complaint: Unable to ambulate Time Seen by Provider: 02/17/23 23:51 Source: patient, family and EMS Mode of arrival: EMS Limitations: no limitations History of Present Illness HPI narrative: Patient is a 77-year-old female who arrives the emergency department by EMS for evaluation of weakness. Patient is a insulin-dependent diabetic. Unsure the exact onset of the patient's symptoms but it appears that she was not feeling well yesterday but was really at some point today that she became more weak. She states that she was lying down and trying to sit up she could not sit up in her was unable to help her up either. She denies chest pain or shortness of breath or abdominal pain. She does have swelling and redness to her left leg left foot. The swelling has actually been there for a couple days and she saw her primary doctor's office for this. Had an ultrasound performed which was negative for DVT. She states the redness started within the past day or so. Related Data Home Medications Medication Instructions Recorded Confirmed carvedilol 12.5 mg tablet 12.5 mg PO BID 04/12/18 02/12/23 acetaminophen 325 mg tablet 3,000 mg DAILY 02/09/19 02/12/23 (Tylenol) multivitamin 1 tab PO DAILY 03/26/22 02/12/23 turmeric 1 cap PO DAILY 03/26/22 02/12/23 Previous Rx's Medication Instructions Recorded duloxetine 20 mg capsule,delayed 40 mg PO DAILY #180 caps 04/22/22 release chlorthalidone 25 mg tablet 25 mg PO DAILY #90 tabs 07/21/22 meloxicam 15 mg tablet 15 mg PO DAILY #90 tabs 10/15/22 simvastatin 20 mg tablet 20 mg PO QPM #90 tabs 12/16/22 gabapentin 300 mg capsule 900 mg PO TID #720 caps 01/08/23 losartan 100 mg tablet 100 mg PO DAILY #90 tabs 01/08/23 metformin 500 mg tablet,extended 500 mg PO BID #180 tabs 01/08/23 release 24 hr furosemide 20 mg tablet 20 mg PO DAILY #90 tabs 02/12/23 Allergies Allergy/AdvReac Type Severity Reaction Status Date / Time Sulfa (Sulfonamide Allergy Severe SKING Verified 02/12/23 14:45 Antibiotics) BURNING, [SULFA (SULFONAMIDE RASH ANTIBIOTICS)] codeine [CODEINE] AdvReac Intermediate VOMITING Verified 02/12/23 14:45 hydroxyzine [HYDROXYZINE] AdvReac Intermediate NAUSEA Verified 02/12/23 14:45 Review of Systems Review of Systems ROS Unobtainable: All systems reviewed & are unremarkable except as noted in HPI and below Patient History Medical History Allergic rhinitis Asthma Cervicalgia Chronic low back pain Ductal carcinoma in situ (DCIS) of left breast (2001) Ductal carcinoma in situ (DCIS) of right breast (2003) Edema Essential hypertension Herniated nucleus pulposus, L4-5 Herniated nucleus pulposus, lumbar Hyperparathyroidism Lumbar foraminal stenosis Lumbosacral radiculopathy at L4 Mixed hyperlipidemia JO (nonalcoholic steatohepatitis) Neuropathy Non-toxic multinodular goiter Osteoarthrosis Overweight Port-A-Cath in place (11/23/17) Type 2 diabetes mellitus with polyneuropathy Venous (peripheral) insufficiency Surgical History History of left mastectomy (2001) History of right mastectomy (2003) History of robot-assisted laparoscopic hysterectomy Hx of cholecystectomy Hx of lithotripsy Social History household members: spouse Smoking Status: Never smoker alcohol intake: current Smoking Status: Never smoker alcohol intake frequency: a few times a month Substance Use Type: does not use Exam Initial Vital Signs Initial Vital Signs: Vital Signs Pulse Rate 110 H 02/17/23 23:55 Respiratory Rate 22 02/17/23 23:55 Pulse Oximetry 94 02/17/23 23:55 Const General: cooperative, comfortable and No ill appearing [facility] Head: normal to inspection and normocephalic Resp Effort & Inspection: tachypneic Auscultation: clear to auscultation bilaterally Cardio Rate: tachycardic Rhythm: regular rhythm Pulses: dorsalis pedis present on the left GI Inspection: normal to inspection Skin Other: Patient has redness to the left great toe. She also has redness to the anterior aspect of the left lower extremity. Neuro Other: Patient does report sensation to the left lower extremity Extrem Other: Swelling to the left lower extremity. Has only mild tenderness to palpation of the left great toe in the left anterior woodward. Psych Appearance: grossly normal Course Orders Ordered: ED Orders 02/17/23 23:57 Blood Culture Stat Complete Blood Count AUTO DIFF Stat Comprehensive Metabolic Panel Stat Lactate (Lactic Acid) Stat Lipase Stat Procalcitonin Stat Urine Culture Stat 02/18/23 00:02 Uric Acid Stat 02/18/23 00:04 XR foot LT min 3V Stat XR tibia fibula LT 2V Stat Sodium Chloride (Normal Saline 0.9%) 1,000 mls @ 125 mls/hr IV CONT MYRA Last Admin: 02/18/23 00:05 Dose: 125 mls/hr Documented By: RICH Discontinued Medications Acetaminophen (Acetaminophen 325 Mg Tablet) 650 mg PO NOW ONE Stop: 02/17/23 23:58 Last Admin: 02/18/23 00:07 Dose: 650 mg Documented By: RICH Ceftriaxone Sodium 1,000 mg/ (Sodium Chloride) 100 mls @ 200 mls/hr IV NOW ONE Stop: 02/17/23 23:57 Last Infusion: 02/18/23 01:20 Dose: 0 mls/hr Documented By: Admin: 02/18/23 00:45 Dose: 200 mls/hr Documented By: THOM Vancomycin HCl (Vancomycin) 1,000 mg in 200 mls @ 200 mls/hr IV NOW ONE Stop: 02/18/23 00:56 Last Infusion: 02/18/23 02:16 Dose: 0 mls/hr Documented By: Admin: 02/18/23 01:00 Dose: 200 mls/hr Documented By: THOM Ondansetron HCl (Ondansetron 4 Mg/2 Ml Inj) 4 mg IV NOW ONE Stop: 02/18/23 00:11 Last Admin: 02/18/23 00:17 Dose: 4 mg Documented By: RICH Vital Signs Vital signs: Vital Signs - 8 hr 02/17/23 23:58 02/17/23 23:55 02/18/23 00:00 Temperature 102.4 F H Pulse Rate 107 H 110 H 108 H Respiratory Rate 20 22 22 Blood Pressure 153/80 H Pulse Oximetry 93 94 93 Oxygen Delivery Method Room Air 02/18/23 01:00 02/18/23 00:30 02/18/23 01:00 Temperature 99.9 F H Pulse Rate 107 H 101 H Respiratory Rate 25 H 22 Blood Pressure Pulse Oximetry 90 L 89 L Oxygen Delivery Method 02/18/23 01:30 02/18/23 02:00 Temperature Pulse Rate 97 H 96 H Respiratory Rate 19 19 Blood Pressure Pulse Oximetry 91 92 Oxygen Delivery Method Medical Decision Making Medical Records Medical records reviewed: Yes I reviewed the patient's medical records. Lab Data Lab results reviewed: Yes I reviewed the patient's lab results. 02/18/23 00:02 02/18/23 00:02 Labs: Lab Results 02/18/23 02/18/23 02/18/23 Range/Units 00:02 00:02 00:02 WBC 8.5 (4.5-11.0) X10^3/uL RBC 4.16 (4.0-5.2) X10^6/uL Hgb 13.4 (12.0-16.0) g/dL Hct 38.2 (36-46) % MCV 91.8 (80-100) fL MCH 32.1 (26-34) PG MCHC 34.9 (30-36) % RDW 12.5 (11.6-14.8) % Plt Count 270 (150-400) X10^3/uL Neut % (Auto) 88.2 H (50-75) % Lymph % (Auto) 4.8 L (25-40) % [place] % (Auto) 5.5 (3-14) % Eos % (Auto) 1.0 L (2-4) % Baso % (Auto) 0.5 (0-2) % Neut # (Auto) 7500 H (4748-1607) /uL Lymph # (Auto) 400 L (2183-6778) /uL [place] # (Auto) 500 (0-900) /uL Eos # (Auto) 100 (0-450) /uL Baso # (Auto) 0 (0-100) /uL Sodium 132 L (137-145) mmol/L Potassium 3.9 (3.4-5.1) mmol/L Chloride 91 L (98-107) mmol/L Carbon Dioxide 29 (22-32) mmol/L BUN 25 H (7-17) mg/dL Creatinine 0.81 (0.52-1.04) mg/dL Estimated GFR > 60 (>60) mL/min BUN/Creatinine Ratio 30.9 H (6-22) Glucose 342 H (80-110) mg/dL Lactate 2.2 H (0.7-2.1) mmol/L Uric Acid (2.5-6.2) mg/dL Calcium 10.6 H (8.4-10.2) mg/dL Total Bilirubin 1.1 (0.2-1.3) mg/dL AST 136 H (14-36) IU/L ALT 159 H (<35) IU/L Alkaline Phosphatase 172 H (38-126) U/L Total Protein 7.7 (6.3-8.2) g/dL Albumin 4.6 (3.5-5.0) g/dL Globulin 3.1 (1.7-4.1) g/dL Albumin/Globulin Ratio 1.5 (1.0-2.8) Lipase 64 (23-300) U/L Procalcitonin 0.25 (<0.5) ng/mL 02/18/23 Range/Units 00:02 WBC (4.5-11.0) X10^3/uL RBC (4.0-5.2) X10^6/uL Hgb (12.0-16.0) g/dL Hct (36-46) % MCV (80-100) fL MCH (26-34) PG MCHC (30-36) % RDW (11.6-14.8) % Plt Count (150-400) X10^3/uL Neut % (Auto) (50-75) % Lymph % (Auto) (25-40) % [place] % (Auto) (3-14) % Eos % (Auto) (2-4) % Baso % (Auto) (0-2) % Neut # (Auto) (8465-4414) /uL Lymph # (Auto) (8175-1757) /uL [place] # (Auto) (0-900) /uL Eos # (Auto) (0-450) /uL Baso # (Auto) (0-100) /uL Sodium (137-145) mmol/L Potassium (3.4-5.1) mmol/L Chloride (98-107) mmol/L Carbon Dioxide (22-32) mmol/L BUN (7-17) mg/dL Creatinine (0.52-1.04) mg/dL Estimated GFR (>60) mL/min BUN/Creatinine Ratio (6-22) Glucose (80-110) mg/dL Lactate (0.7-2.1) mmol/L Uric Acid 7.1 H (2.5-6.2) mg/dL Calcium (8.4-10.2) mg/dL Total Bilirubin (0.2-1.3) mg/dL AST (14-36) IU/L ALT (<35) IU/L Alkaline Phosphatase (38-126) U/L Total Protein (6.3-8.2) g/dL Albumin (3.5-5.0) g/dL Globulin (1.7-4.1) g/dL Albumin/Globulin Ratio (1.0-2.8) Lipase (23-300) U/L Procalcitonin (<0.5) ng/mL Imaging Data Extremity x-ray #1: Radiologist's Impression: PROCEDURE:? XR TIBIA FIBULA LT 2V ? INDICATIONS:? lower leg cellulitis and swelling eval for free air ? TECHNIQUE:? 2 views of the tibia and fibula were acquired.? ? COMPARISON:? None. ? FINDINGS:? ? Bones:? No fractures or dislocations.? No bony erosions or periosteal reaction.? No suspicious bony lesions.? ? Soft tissues:? No definite soft tissue gas.? There is a lobulated calcification in the lateral soft tissues which is nonspecific and the differential includes dystrophic calcification or phlebolith. ? IMPRESSION:? ? 1. No radiographic evidence of osteomyelitis. ? 2. No definite soft tissue gas.? Extremity x-ray #2: Radiologist's Impression: PROCEDURE:? XR FOOT LT MIN 3V ? INDICATIONS:? great toe swelling and redness ? TECHNIQUE:? 3 views of the foot were acquired.? ? COMPARISON:? None. ? FINDINGS:? ? Bones:? No fractures or dislocations.? No suspicious bony lesions.? ? Soft tissues:? No tibiotalar joint effusion.? Achilles tendon appears normal.? ? ? IMPRESSION:? ? 1. No fracture or dislocation. ECG Data Attestation: I personally reviewed and interpreted this ECG as follows: Interpretation: Sinus tachycardia Ventricular rate 106 Normal axis Normal QRS Normal QTC No ST T waves in his MDM Narrative Medical decision making narrative: Patient has physical exam findings of cellulitis to her left lower extremity. X-rays are unremarkable. Was febrile and tachycardic and week on arrival. Antibiotics ordered. Tylenol ordered. Fluids administered. Will hold on the 30 cc/kilogram of fluid secondary to her presentation. Discussed the case with Dr. Nelson on-call for hospitalist Medicine who will admit for IV antibiotics. Discussed the need for admission with the patient and . They expressed understanding and agreement. Discharge Plan Departure Patient Disposition: Admitted As Inpatient Clinical Impression: Cellulitis, Hyperglycemia
[2023-02-17 23:58] VITALS: BP 153/80; PULSE 107; RESP 20; TEMP 39.1; O2SAT 93; BMI 31.4
[2023-02-18] VITALS (18 sets, daily range): BP systolic 133–153; BP diastolic 66–79; PULSE 76–108; RESP 17–25; TEMP 36.5–37.7; O2SAT 89–96; BMI 31.4
--- NOTE | 2023-02-18 00:04 | DI.RAD.S_ITS ---
PROCEDURE: XR TIBIA FIBULA LT 2V INDICATIONS: lower leg cellulitis and swelling eval for free air TECHNIQUE: 2 views of the tibia and fibula were acquired. COMPARISON: None. FINDINGS: Bones: No fractures or dislocations. No bony erosions or periosteal reaction. No suspicious bony lesions. Soft tissues: No definite soft tissue gas. There is a lobulated calcification in the lateral soft tissues which is nonspecific and the differential includes dystrophic calcification or phlebolith. IMPRESSION: 1. No radiographic evidence of osteomyelitis. 2. No definite soft tissue gas. Dictated by: Ulisses Vizcaino M.D. on 02/18/2023 at 1:25 Approved by: Ulisses Vizcaino M.D. on 02/18/2023 at 1:29
--- NOTE | 2023-02-18 00:04 | DI.RAD.S_ITS ---
PROCEDURE: XR FOOT LT MIN 3V INDICATIONS: great toe swelling and redness TECHNIQUE: 3 views of the foot were acquired. COMPARISON: None. FINDINGS: Bones: No fractures or dislocations. No suspicious bony lesions. Soft tissues: No tibiotalar joint effusion. Achilles tendon appears normal. IMPRESSION: 1. No fracture or dislocation. Dictated by: Ulisses Vizcaino M.D. on 02/18/2023 at 1:24 Approved by: Ulisses Vizcaino M.D. on 02/18/2023 at 1:25
[2023-02-18] MEDS: SODIUM CHLORIDE 0.9% 1,000 ML 125 ML IV ×2 (00:05→11:12)
[2023-02-18] MEDS: ACETAMINOPHEN 325 MG TABLET 650 MG PO ×2 (00:07→13:35)
[2023-02-18 00:12] LABS: Add Manual Diff / Slide Review NO; Basophils Absolute Auto 0 /uL (0-100); Basophils Percent Auto 0.5 % (0-2); Eosinophils Absolute Auto 100 /uL (0-450); Hematocrit 38.2 % (36-46); Hemoglobin 13.4 g/dL (12.0-16.0); Lymphocytes Absolute Auto 400 /uL (1100-4500); Lymphocytes Percent Auto 4.8 % (25-40); Mean Corpuscular HGB Conc 34.9 % (30-36); Mean Corpuscular Hemoglobin 32.1 PG (26-34); Mean Corpuscular Volume 91.8 fL (80-100); Monocytes Absolute Auto 500 /uL (0-900); Monocytes Percent Auto 5.5 % (3-14); Neutrophils Absolute Auto 7500 /uL (1500-7000); Neutrophils Percent Auto 88.2 % (50-75); Platelet Count 270 X10^3/uL (150-400); Red Blood Cell Count 4.16 X10^6/uL (4.0-5.2); Red Cell Distribution Width 12.5 % (11.6-14.8); White Blood Cell Count 8.5 X10^3/uL (4.5-11.0)
[2023-02-18] MEDS: ONDANSETRON 4 MG/2 ML INJ IV (00:17)
[2023-02-18 00:25] LABS: Alanine Aminotransferase 159 IU/L (<35); Albumin 4.6 g/dL (3.5-5.0); Albumin Globulin Ratio 1.5 (1.0-2.8); Alkaline Phosphatase 172 U/L (38-126); Aspartate Aminotransferase 136 IU/L (14-36); BUN Creatinine Ratio 30.9 (6-22); Bilirubin Total 1.1 mg/dL (0.2-1.3); Blood Urea Nitrogen 25 mg/dL (7-17); Calcium 10.6 mg/dL (8.4-10.2); Carbon Dioxide 29 mmol/L (22-32); Chloride 91 mmol/L (98-107); Estimated Glomerular Filt Rate > 60 mL/min (>60); Globulin 3.1 g/dL (1.7-4.1); Glucose 342 mg/dL (80-110); HEMOLYSIS < 15 (0-50); Lipase 64 U/L (23-300); Potassium 3.9 mmol/L (3.4-5.1); Sodium 132 mmol/L (137-145); Total Protein 7.7 g/dL (6.3-8.2)
[2023-02-18 00:26] LABS: Lactate (Lactic Acid) 2.2 mmol/L (0.7-2.1)
[2023-02-18 00:42] LABS: Procalcitonin 0.25 ng/mL (<0.5)
[2023-02-18] MEDS: cefTRIAXone 1,000 MG in SODIUM CHLORIDE 0.9% 100 ML 200 MG IV (00:45)
[2023-02-18 00:55] LABS: Uric Acid 7.1 mg/dL (2.5-6.2)
[2023-02-18] MEDS: VANCOMYCIN 1,000 MG/200 ML PIGGYBACK 200 MG IV (01:00)
[2023-02-18 02:07] LABS: Reflexed Lactate in 2 Hours Y
[2023-02-18 02:59] LABS: Lactate 2HR (Lactic Acid Rflx) 2.1 mmol/L (0.7-2.1)
[2023-02-18 04:50] LABS: Lactate (Lactic Acid) 2.2 mmol/L (0.7-2.1)
[2023-02-18] MEDS: VANCOMYCIN 1,000 MG/200 ML PIGGYBACK 120 MG IV (04:50)
--- NOTE | 2023-02-18 06:19 | P.HP_ITS ---
History of Present Illness History of Present Illness Date Patient Seen: 02/18/23 Time Patient Seen: 02:00 Chief complaint: Unable to ambulate Narrative: Ms. Krishnan is a 77W with PMH DM, HTN, neuropathy who presents to the hospital with leg pain. History is obtained mostly from family at bedside. She has had swelling in the left leg that has worsened over a few weeks. She was seen about a week ago for this and was thought to possibly have chronic venous stasis changes. US for DVT was negative. Over the last day she has developed pain the redness in the foot and leg. She has an ulcer on the plantar side of her left great toe. Her entire toe is erythematous. She has a separate area of erythema on her left woodward area. She was unable to ambulate because of this. In the ED workup was done, vitals notable for temp 102.4, heart rate 100s-110s, respiratory rate 20s, blood pressure 150s/80s, o2 sats 93% on room air. She essentially spends the entire exam not responding to me with a towel over her face, family at bedside said she is acting oddly and confused. Labs reviewed by me notable for WBC 8.5, hgb 13.4, plts 270. Na 132, creatinine 0.81. Lactate 2 .2. Procal 0.25. Uric acid 7.1. Left chest xray and fibula xray negative for any acute process. She was ordered for fluids and antibiotics and admitted for further treatment. [facility] Medical History Allergic rhinitis Asthma Cervicalgia Chronic low back pain Ductal carcinoma in situ (DCIS) of left breast (2001) Ductal carcinoma in situ (DCIS) of right breast (2003) Edema Essential hypertension Herniated nucleus pulposus, L4-5 Herniated nucleus pulposus, lumbar Hyperparathyroidism Lumbar foraminal stenosis Lumbosacral radiculopathy at L4 Mixed hyperlipidemia ZHOU (nonalcoholic steatohepatitis) Neuropathy Non-toxic multinodular goiter Osteoarthrosis Overweight Port-A-Cath in place (11/23/17) Type 2 diabetes mellitus with polyneuropathy Venous (peripheral) insufficiency Surgical History History of left mastectomy (2001) History of right mastectomy (2003) History of robot-assisted laparoscopic hysterectomy Hx of cholecystectomy Hx of lithotripsy Social History household members: spouse Smoking Status: Never smoker alcohol intake: current Meds Home Medications and Allergies Home Medications Medication Instructions Recorded Confirmed Type carvedilol 12.5 mg tablet 12.5 mg PO BID 04/12/18 02/12/23 History acetaminophen 325 mg tablet 3,000 mg DAILY 02/09/19 02/12/23 History (Tylenol) multivitamin 1 tab PO DAILY 03/26/22 02/12/23 History turmeric 1 cap PO DAILY 03/26/22 02/12/23 History duloxetine 20 mg capsule,delayed 40 mg PO DAILY #180 caps 04/22/22 02/12/23 Rx release chlorthalidone 25 mg tablet 25 mg PO DAILY #90 tabs 07/21/22 02/12/23 Rx meloxicam 15 mg tablet 15 mg PO DAILY #90 tabs 10/15/22 02/12/23 Rx simvastatin 20 mg tablet 20 mg PO QPM #90 tabs 12/16/22 02/12/23 Rx gabapentin 300 mg capsule 900 mg PO TID #720 caps 01/08/23 02/12/23 Rx losartan 100 mg tablet 100 mg PO DAILY #90 tabs 01/08/23 02/12/23 Rx metformin 500 mg tablet,extended 500 mg PO BID #180 tabs 01/08/23 02/12/23 Rx release 24 hr furosemide 20 mg tablet 20 mg PO DAILY #90 tabs 02/12/23 02/12/23 Rx Allergies Allergy/AdvReac Type Severity Reaction Status Date / Time Sulfa (Sulfonamide Allergy Severe SKING Verified 02/12/23 14:45 Antibiotics) BURNING, [SULFA (SULFONAMIDE RASH ANTIBIOTICS)] codeine [CODEINE] AdvReac Intermediate VOMITING Verified 02/12/23 14:45 hydroxyzine [HYDROXYZINE] AdvReac Intermediate NAUSEA Verified 02/12/23 14:45 Review of Systems Review of Systems Narrative: 14 systems reviewed and negative aside from what is noted in HPI Exam Vital Signs (past 8 hours): - 02/17/23 23:58 02/17/23 23:55 02/18/23 00:00 Temperature 102.4 F H Pulse Rate 107 H 110 H 108 H Respiratory Rate 20 22 22 Blood Pressure 153/80 H Pulse Oximetry 93 94 93 Oxygen Delivery Method Room Air 02/18/23 01:00 02/18/23 00:30 02/18/23 01:00 Temperature 99.9 F H Pulse Rate 107 H 101 H Respiratory Rate 25 H 22 Blood Pressure Pulse Oximetry 90 L 89 L Oxygen Delivery Method 02/18/23 01:30 02/18/23 02:00 02/18/23 02:30 Temperature Pulse Rate 97 H 96 H 100 H Respiratory Rate 19 19 21 Blood Pressure Pulse Oximetry 91 92 93 Oxygen Delivery Method 02/18/23 02:45 02/18/23 02:46 02/18/23 02:46 Temperature Pulse Rate 101 H 102 H Respiratory Rate 20 19 Blood Pressure 149/69 H Pulse Oximetry 93 93 Oxygen Delivery Method 02/18/23 03:00 02/18/23 03:00 02/18/23 03:30 Temperature Pulse Rate 100 H Respiratory Rate 20 Blood Pressure 151/68 H 150/70 H Pulse Oximetry 94 Oxygen Delivery Method 02/18/23 03:30 02/18/23 04:00 02/18/23 03:36 Temperature 97.7 F Pulse Rate 100 H 107 H Respiratory Rate 20 17 Blood Pressure 152/79 H Pulse Oximetry 95 92 Oxygen Delivery Method Room Air 02/18/23 04:00 Temperature Pulse Rate Respiratory Rate Blood Pressure Pulse Oximetry 92 Oxygen Delivery Method Room Air Oxygen Delivery Method Room Air Narrative Exam Narrative: GEN: lying in bed with towel over face NECK: trachea midline, no jvd PULM: clear bilaterally, no wheezes, rhonchi, rales CV: tachycardic, no murmurs ABD: soft, nontender, nondistended, no organomegaly EXT: left leg swollen, shallow 1cm ulcer on plantar 1st left toe that is dry, erythematous 1st left toe, erythema and warmth on lower left leg anteriorly NEURO: no focal deficits, confused Objective Labs 02/18/23 00:02 02/18/23 00:02 Labs: Laboratory Results - last 24 hr 02/18/23 02/18/23 02/18/23 00:02 00:02 00:02 WBC 8.5 RBC 4.16 Hgb 13.4 Hct 38.2 MCV 91.8 MCH 32.1 MCHC 34.9 RDW 12.5 Plt Count 270 Neut % (Auto) 88.2 H Lymph % (Auto) 4.8 L [place] % (Auto) 5.5 Eos % (Auto) 1.0 L Baso % (Auto) 0.5 Neut # (Auto) 7500 H Lymph # (Auto) 400 L [place] # (Auto) 500 Eos # (Auto) 100 Baso # (Auto) 0 Sodium 132 L Potassium 3.9 Chloride 91 L Carbon Dioxide 29 BUN 25 H Creatinine 0.81 Estimated GFR > 60 BUN/Creatinine Ratio 30.9 H Glucose 342 H Lactate 2.2 H Uric Acid Calcium 10.6 H Total Bilirubin 1.1 AST 136 H ALT 159 H Alkaline Phosphatase 172 H Total Protein 7.7 Albumin 4.6 Globulin 3.1 Albumin/Globulin Ratio 1.5 Lipase 64 Procalcitonin 0.25 02/18/23 02/18/23 02/18/23 00:02 02:44 04:25 WBC RBC Hgb Hct MCV MCH MCHC RDW Plt Count Neut % (Auto) Lymph % (Auto) [place] % (Auto) Eos % (Auto) Baso % (Auto) Neut # (Auto) Lymph # (Auto) [place] # (Auto) Eos # (Auto) Baso # (Auto) Sodium Potassium Chloride Carbon Dioxide BUN Creatinine Estimated GFR BUN/Creatinine Ratio Glucose Lactate 2.1 2.2 H Uric Acid 7.1 H Calcium Total Bilirubin AST ALT Alkaline Phosphatase Total Protein Albumin Globulin Albumin/Globulin Ratio Lipase Procalcitonin Assessment & Plan Assessment & Plan narrative: 1. Sepsis, left leg cellulitis, and acute metabolic encephalopathy -presents with fevers, tachycardia, and tachypnea -etiology appears to be cellulitis of left leg with organ dysfunction with encphalopathy -wbc and procal not elevated -lactate mildly elevated at 2.2 -given history of diabetes will treat with vancomycin and ceftriaxone -follow up cultures -did get us for dvt on 02/12 that was negative 2. Type 2 Diabetes with neuropathy -hold oral diabetes medication -check a1c -check glucose achs -placed on insulin sliding scale 3. Hypertension -hold medications for given sepsis 4. Transaminitis -lfts in the 100s -slightly higher than normal, but has chronically high lfts -has diagnosis of zhou, suspect higher in setting of sepsis -no abdominal pain or other abdominal symptoms, no indication for imaging currently 5. Lumbar radiculopathy -planned for laminectomy -raúl new difficulty walking, order PT I have discussed plan and obtained history from patient and spouse. I have discussed plan of care with ED physician and bedside nurse. I have reviewed labs, imaging and previous medicla notes. CODE: Full Proxy: Brady Matthew, spouse Quality [facility] - Meds 'Current medications' to include all prescriptions, [id number] products, h erbals, cannabis/cannabidiol products, and vitamin/mineral/dietary (nutritional) supplements. I have utilized all available resources to obtain, update, or review the patient?s current medications. [If Yes, STOP here]: Yes
[2023-02-18 06:41] LABS: Reflexed Lactate in 2 Hours Y
[2023-02-18 07:38] LABS: Lactate 2HR (Lactic Acid Rflx) 2.5 mmol/L (0.7-2.1)
[2023-02-18] MEDS: INSULIN LISPRO 100 UNIT/ML 3ML VIAL SUBCUT ×3 (08:04→16:34)
[2023-02-18 08:41] LABS: C-Reactive Protein Quant 7.6 mg/dL (<1.0)
[2023-02-18] MEDS: HEPARIN 5,000 UNIT/ML VIAL 5000 UNIT SUBCUT ×2 (08:42→20:31)
[2023-02-18 09:29] LABS: Erythrocyte Sedimentation Rate 46 MM/HR (0-20)
--- NOTE | 2023-02-18 11:35 | PT-IP ANOTE ---
Per hospitalist, hold PT eval for today and will see how pt will progress with ongoing medication/tx. will f/u tomorrow.
--- NOTE | 2023-02-18 13:14 | PC.NURSE ---
Patient is sleeping, at bedside. Blood sugar 219 and 3u of insulin given to patient.
[2023-02-18 14:57] LABS: Acinetobacter calcoa-baumannii Not Detected (Not Detect); Bacteroides fragilis Not Detected (Not Detect); Candida albicans Not Detected (Not Detect); Candida auris Not Detected (Not Detect); Candida glabrata Not Detected (Not Detect); Candida krusei Not Detected (Not Detect); Candida parapsilosis Not Detected (Not Detect); Candida tropicalis Not Detected (Not Detect); Cryptococcus neoformans/gatti Not Detected (Not Detect); Enterobacter cloacae complex Not Detected (Not Detect); Enterobacterales Not Detected (Not Detect); Enterococcus faecalis Not Detected (Not Detect); Enterococcus faecium Not Detected (Not Detect); Haemophilus influenzae Not Detected (Not Detect); Klebsiella aerogenes Not Detected (Not Detect); Listeria monocytogenes Not Detected (Not Detect); Neisseria meningitidis Not Detected (Not Detect); Proteus species Not Detected (Not Detect); Pseudomonas aeruginosa Not Detected (Not Detect); Salmonella species Not Detected (Not Detect); Serratia marcescens Not Detected (Not Detect); Staphylococcus epidermidis Not Detected (Not Detect); Staphylococcus lugdunensis Not Detected (Not Detect); Staphylococcus species Not Detected (Not Detect); Stenotrophomonas maltophilia Not Detected (Not Detect); Streptococcus agalactiae (Gr B Not Detected (Not Detect); Streptococcus pneumonia Not Detected (Not Detect); Streptococcus pyogenes (Gr A) DETECTED (Not Detect); Streptococcus species DETECTED (Not Detect)
--- NOTE | 2023-02-18 15:47 | CM.DANOTE ---
DCP Brief Assessment: Patient is a 77yo F here for general weakness and swelling and redness in her left leg/foot. Payer: [place] and self pay PCP: Aristeo Navas CM team unable to meet with patient at this time. Brief assessment gathered on information from chart and hospital staff. From ER documentation, patient had altered mental status. Per morning rounds, provider stated she will likely be here at day or two. Provider asked for PT to hold off on evaluating today due to general weakness and attempting to get patient more medically stable first. From nursing, patient likely has sepsis. Plan: CM team will continue to follow closely. Waiting PT eval for safe d/c information. CM team will assess for further needs in morning. HEENA Dorsey Discharge Planning/Care Management Discharge Assessment Start: 02/18/23 15:44 Freq: Status: Active Protocol: Document 02/18/23 15:44 (Rec: 02/18/23 15:47 [id number]) Discharge Planning Assessment Assigned [employer] HEENA Dorsey DPOA/Assigned Designee Name Brady Matthew (spouse) Contact Information [phone] Advance Directives? Yes Advance Directives on File No History Provided By Medical Record Has Patient been admitted in last 30 No days? Prior Living Arrangements House Household Members spouse Is patient alert and oriented? ER Report cited altered mental status Discharge Plan Home Whiteboard Updated in Patient Room with No name and ext. # of [employer] Review Status In Process Next Review Type Continued Stay Review
[2023-02-18] MEDS: DEXTROSE 5% IV ×2 (16:20→20:31)
[2023-02-18] MEDS: PENICILLIN POTASSIUM IV ×2 (16:20→20:31)
[2023-02-18] MEDS: WATER IV ×2 (16:20→20:31)
[2023-02-18] MEDS: OXYCODONE IR 5 MG TABLET PO (16:29)
[2023-02-18] MEDS: CLINDAMYCIN 900 MG in SODIUM CHLORIDE 0.9% 100 ML 106 MG IV (17:16)
[2023-02-18] MEDS: ATORVASTATIN 20 MG TABLET PO (20:30)
[2023-02-18] MEDS: carvediloL 12.5 MG TABLET PO (20:30)
[2023-02-18] MEDS: GABAPENTIN 300 MG CAPSULE 900 MG PO (20:30)
[2023-02-19] VITALS (13 sets, daily range): BP systolic 117–161; BP diastolic 56–81; PULSE 66–79; RESP 17–19; TEMP 36.3–38.1; O2SAT 93–96
[2023-02-19] MEDS: WATER IV ×6 (00:59→21:02)
[2023-02-19] MEDS: PENICILLIN POTASSIUM IV ×6 (00:59→21:02)
[2023-02-19] MEDS: DEXTROSE 5% IV ×6 (00:59→21:02)
[2023-02-19] MEDS: CLINDAMYCIN 900 MG in SODIUM CHLORIDE 0.9% 100 ML 106 MG IV ×3 (01:30→18:28)
[2023-02-19] MEDS: ACETAMINOPHEN 325 MG TABLET 650 MG PO ×3 (03:16→15:04)
--- NOTE | 2023-02-19 03:30 | PC.NURSE ---
Addendum entered by Sherry Fuentes R.N. 02/19/23 04:32: Outlined left lower leg redness. Upper thigh redness changed from pink to red and became larger, also outlined. Temp=97.8 after Tylenol. Original Note: Pt has been drowsy most of the NOC shift. Answering questions appropriately and follows simple directions. Receiving fluids and IV ABX. Left leg red, tight and warm to the touch. Elevating left leg. Administered PRN Tylenol r/t sdvm=474.5. Up to bedside commode with x2 person assist, unsteady gait. will be back in am.
[2023-02-19 04:38] LABS: x Labcorp Estim. Avg Glu (eAG) 160 mg/dL (.); x Labcorp Hemoglobin A1c 7.2 % (4.8-5.6)
[2023-02-19 05:04] LABS: Add Manual Diff / Slide Review NO; Basophils Absolute Auto 100 /uL (0-100); Basophils Percent Auto 0.6 % (0-2); Eosinophils Absolute Auto 100 /uL (0-450); Eosinophils Percent Auto 1.4 % (2-4); Hematocrit 31.5 % (36-46); Lymphocytes Absolute Auto 600 /uL (1100-4500); Lymphocytes Percent Auto 7.3 % (25-40); Mean Corpuscular HGB Conc 34.9 % (30-36); Mean Corpuscular Hemoglobin 31.9 PG (26-34); Mean Corpuscular Volume 91.5 fL (80-100); Monocytes Absolute Auto 800 /uL (0-900); Monocytes Percent Auto 8.8 % (3-14); Neutrophils Absolute Auto 7000 /uL (1500-7000); Neutrophils Percent Auto 81.9 % (50-75); Platelet Count 240 X10^3/uL (150-400); Red Blood Cell Count 3.45 X10^6/uL (4.0-5.2); Red Cell Distribution Width 12.7 % (11.6-14.8); White Blood Cell Count 8.5 X10^3/uL (4.5-11.0)
[2023-02-19 05:12] LABS: Alanine Aminotransferase 154 IU/L (<35); Albumin 3.4 g/dL (3.5-5.0); Albumin Globulin Ratio 1.3 (1.0-2.8); Alkaline Phosphatase 118 U/L (38-126); Aspartate Aminotransferase 117 IU/L (14-36); BUN Creatinine Ratio 18.2 (6-22); Bilirubin Total 0.8 mg/dL (0.2-1.3); Blood Urea Nitrogen 12 mg/dL (7-17); Carbon Dioxide 30 mmol/L (22-32); Chloride 91 mmol/L (98-107); Estimated Glomerular Filt Rate > 60 mL/min (>60); Globulin 2.7 g/dL (1.7-4.1); Glucose 215 mg/dL (80-110); HEMOLYSIS < 15 (0-50); Potassium 3.3 mmol/L (3.4-5.1); Sodium 128 mmol/L (137-145); Total Protein 6.1 g/dL (6.3-8.2)
[2023-02-19] MEDS: HEPARIN 5,000 UNIT/ML VIAL 5000 UNIT SUBCUT ×2 (08:02→20:56)
[2023-02-19] MEDS: GABAPENTIN 300 MG CAPSULE 900 MG PO ×3 (08:03→20:51)
[2023-02-19] MEDS: OXYCODONE IR 5 MG TABLET PO ×3 (08:03→15:04)
[2023-02-19] MEDS: carvediloL 12.5 MG TABLET PO ×2 (08:04→20:52)
[2023-02-19] MEDS: INSULIN LISPRO 100 UNIT/ML 3ML VIAL SUBCUT ×4 (08:10→20:59)
[2023-02-19] MEDS: LOSARTAN 50 MG TABLET PO (08:18)
[2023-02-19] MEDS: CHLORTHALIDONE 25 MG TABLET PO (08:18)
[2023-02-19] MEDS: DULOXETINE 20 MG CAPSULE 40 MG PO (08:18)
[2023-02-19] MEDS: POTASSIUM CHLORIDE 20 MEQ TAB 40 MEQ PO ×2 (09:33→15:30)
[2023-02-19] MEDS: SODIUM CHLORIDE 0.9% 1,000 ML 125 ML IV (11:56)
--- NOTE | 2023-02-19 12:03 | P.PN_ITS ---
Subjective Subjective Interval history: 77F admitted with sepsis, blood cultures positive for group A strep, on p enicillin and clindamycin now. Repeat blood cultures today. Patient continues to feel slightly weak but much improved, confusion is also much improved. Left leg cellulitis into thigh, but less red today. Exam Vital Signs (past 8 hours): - 02/19/23 08:04 02/19/23 08:18 02/19/23 08:19 Temperature 97.4 F L Pulse Rate 72 70 Blood Pressure 137/68 137/68 Pulse Oximetry Oxygen Delivery Method Oxygen Flow Rate 02/19/23 10:03 Temperature Pulse Rate Blood Pressure Pulse Oximetry 96 Oxygen Delivery Method Room Air Oxygen Flow Rate 0 Oxygen Delivery Method Room Air Oxygen Flow Rate 0 Narrative Exam Narrative: GEN: lying in bed, no acute distress NECK: trachea midline, no jvd PULM: clear bilaterally, no wheezes, rhonchi, rales CV: RRR, no murmurs ABD: soft, nontender, nondistended, no organomegaly EXT: left leg swollen, shallow 1cm ulcer on plantar 1st left toe that is dry, erythematous 1st left toe, erythema and warmth on lower left leg anteriorly, extending to left thigh but improved warmth more distally today NEURO: no focal deficits, alert and oriented x3 without confusion today Objective Labs 02/19/23 04:34 02/19/23 04:34 Labs: Laboratory Results - last 24 hr 02/18/23 02/18/23 02/19/23 00:02 00:02 04:34 WBC 8.5 RBC 3.45 L Hgb 11.0 L Hct 31.5 L MCV 91.5 MCH 31.9 MCHC 34.9 RDW 12.7 Plt Count 240 Neut % (Auto) 81.9 H Lymph % (Auto) 7.3 L [place] % (Auto) 8.8 Eos % (Auto) 1.4 L Baso % (Auto) 0.6 Neut # (Auto) 7000 Lymph # (Auto) 600 L [place] # (Auto) 800 Eos # (Auto) 100 Baso # (Auto) 100 Sodium Potassium Chloride Carbon Dioxide BUN Creatinine Estimated GFR BUN/Creatinine Ratio Glucose Hgb A1c (Ref Lab) 7.2 H Estim Average Glucose 160 Calcium Total Bilirubin AST ALT Alkaline Phosphatase Total Protein Albumin Globulin Albumin/Globulin Ratio A.calcoaceticus-baumannii cmplx PCR Not detected Bacteroides fragilis Not detected Lani albicans (PCR) Not detected Lani auris (PCR) Not detected C. glabrata (PCR) Not detected C. krusei (PCR) Not detected C. parapsilosis (PCR) Not detected C. tropicalis (PCR) Not detected C. neoform/gattii (PCR) Not detected Enterobacterales (PCR) Not detected E. cloacae complex PCR Not detected Enterococc faecalis PCR Not detected Enterococc faecium PCR Not detected E. coli (PCR) Not detected H. influenzae (PCR) Not detected Klebsiella aerogenes (PCR) Not detected Klebsiella oxytoca PCR Not detected Klebsiella pneumoniae Not detected List. monocytogenes PCR Not detected N. meningitidis (PCR) Not detected Proteus species (PCR) Not detected Salmonella spp. (PCR) Not detected Serratia marcescens PCR Not detected Staphylococcus sp PCR Not detected Staph aureus (PCR) Not detected Staph epidermidis (PCR) Not detected Staph lugdunensis PCR Not detected S. maltophilia (PCR) Not detected Streptococcus sp PCR Detected H Group A Strep (PCR) Detected H Strep agalactiae (PCR) Not detected Strep pneumoniae (PCR) Not detected P. aeruginosa (PCR) Not detected 02/19/23 04:34 WBC RBC Hgb Hct MCV MCH MCHC RDW Plt Count Neut % (Auto) Lymph % (Auto) [place] % (Auto) Eos % (Auto) Baso % (Auto) Neut # (Auto) Lymph # (Auto) [place] # (Auto) Eos # (Auto) Baso # (Auto) Sodium 128 L Potassium 3.3 L Chloride 91 L Carbon Dioxide 30 BUN 12 Creatinine 0.66 Estimated GFR > 60 BUN/Creatinine Ratio 18.2 Glucose 215 H D Hgb A1c (Ref Lab) Estim Average Glucose Calcium 9.0 Total Bilirubin 0.8 AST 117 H ALT 154 H Alkaline Phosphatase 118 D Total Protein 6.1 L Albumin 3.4 L Globulin 2.7 Albumin/Globulin Ratio 1.3 A.calcoaceticus-baumannii cmplx PCR Bacteroides fragilis Lani albicans (PCR) Lani auris (PCR) C. glabrata (PCR) C. krusei (PCR) C. parapsilosis (PCR) C. tropicalis (PCR) C. neoform/gattii (PCR) Enterobacterales (PCR) E. cloacae complex PCR Enterococc faecalis PCR Enterococc faecium PCR E. coli (PCR) H. influenzae (PCR) Klebsiella aerogenes (PCR) Klebsiella oxytoca PCR Klebsiella pneumoniae List. monocytogenes PCR N. meningitidis (PCR) Proteus species (PCR) Salmonella spp. (PCR) Serratia marcescens PCR Staphylococcus sp PCR Staph aureus (PCR) Staph epidermidis (PCR) Staph lugdunensis PCR S. maltophilia (PCR) Streptococcus sp PCR Group A Strep (PCR) Strep agalactiae (PCR) Strep pneumoniae (PCR) P. aeruginosa (PCR) PFSH Medical History Allergic rhinitis Asthma Cervicalgia Chronic low back pain Ductal carcinoma in situ (DCIS) of left breast (2001) Ductal carcinoma in situ (DCIS) of right breast (2003) Edema Essential hypertension Herniated nucleus pulposus, L4-5 Herniated nucleus pulposus, lumbar Hyperparathyroidism Lumbar foraminal stenosis Lumbosacral radiculopathy at L4 Mixed hyperlipidemia JO (nonalcoholic steatohepatitis) Neuropathy Non-toxic multinodular goiter Osteoarthrosis Overweight Port-A-Cath in place (11/23/17) Type 2 diabetes mellitus with polyneuropathy Venous (peripheral) insufficiency Surgical History History of left mastectomy (2001) History of right mastectomy (2003) History of robot-assisted laparoscopic hysterectomy Hx of cholecystectomy Hx of lithotripsy Social History household members: spouse Smoking Status: Never smoker alcohol intake: current Assessment & Plan Assessment & Plan narrative: 1. Sepsis, left leg cellulitis, and acute metabolic encephalopathy secondary to group A strep - blood cultures with group A strep, 4/4 bottles - repeated blood cultures today. Encephalopathy has markedly improved with antibiotics. - if bacteremia clears quickly, no other evidence for endocarditis at this time. Consider ID to determine if 2 weeks IV antibiotics are necessary or if can complete treatment with oral therapy. - mild elevations of ESR and CRP, given improvement quickly in cellulitis no further imaging at this time. 2. Type 2 Diabetes with neuropathy -hold oral diabetes medication, elevated sugar 215 this AM will start lantus 5 tonight. -A1c pending -check glucose achs -placed on insulin sliding scale 3. Hypertension -held medications for given sepsis intially, but resumed today with mildly elevated BP yesterday 4. Transaminitis -lfts in the 100s -slightly higher than normal, but has chronically high lfts -has diagnosis of jo, suspect higher in setting of sepsis -no abdominal pain or other abdominal symptoms, no indication for imaging currently 5. Hyponatremia - worsened to 128 today with IV fluids. Will stop IV fluids, check urine sodium and osm for further evaluation 6. Hypokalemia - will replete today, continue to follow 7. Lumbar radiculopathy -planned for laminectomy CODE: Full Proxy: Brady Matthew, spouse
[2023-02-19 12:15] LABS: Sodium Urine Random 40 mmol/L (30-90)
[2023-02-19] MEDS: NAPROXEN 250 MG TABLET PO (13:17)
--- NOTE | 2023-02-19 14:03 | CM.DPC ---
DCP Continued: From provider in rounds this am and nursing staff this pm, it is possible that client will be here through the weekend. Waiting on PT eval to determine snf versus HH versus OP care. From nursing staff this pm, patient is more A/O now than she was earlier this am. Nurse says she lives at home with and son is here visiting her now. There is a potential patient will need home IV antibiotics. If IV needed, CM team will pursue setting that up with [facility] as soon as it is determined to be medically necessary upon d/c. Plan: CM team will continue to follow closely. Waiting PT eval and status of home IV antibiotics to complete safe d/c plan. HEENA Dorsey.
--- NOTE | 2023-02-19 15:18 | PT.IIE ---
Current Diagnoses Sepsis, unspecified organism (02/18/23) Surgical History (Last Reviewed 02/18/23 @ 06:19 by Mansoor Nelson MD) History of left mastectomy (2001) History of right mastectomy (2003) History of robot-assisted laparoscopic hysterectomy Hx of cholecystectomy Hx of lithotripsy Medical History (Last Reviewed 02/18/23 @ 06:19 by Mansoor eNlson MD) Allergic rhinitis Asthma Cervicalgia Chronic low back pain Ductal carcinoma in situ (DCIS) of left breast (2001) Ductal carcinoma in situ (DCIS) of right breast (2003) Edema Essential hypertension Herniated nucleus pulposus, L4-5 Herniated nucleus pulposus, lumbar Hyperparathyroidism Lumbar foraminal stenosis Lumbosacral radiculopathy at L4 Mixed hyperlipidemia JO (nonalcoholic steatohepatitis) Neuropathy Non-toxic multinodular goiter Osteoarthrosis Overweight Port-A-Cath in place (11/23/17) Type 2 diabetes mellitus with polyneuropathy Venous (peripheral) insufficiency Physical Therapy Inpatient Evaluation/Re-Eval M1 PT/OT-IP Prior Functional Status Start: 02/19/23 15:03 Freq: NEEDED Status: Active Protocol: Document 02/19/23 15:03 ES (Rec: 02/19/23 15:18 ES [id number]) Medical Review Prior Functional Status Medical History Reviewed Yes Diet/Fluid Consistency Regular Communication Indep Mobility and Gait Indep with occasional use of cane due to her back and leg pain Activities of Daily Living and IADL's Indep Prior Functional Level (Other details) Able to drive Social History Household Members spouse Living Arrangements Apartment/Condo Number of Floors (Floors) One Floor Number of Stairs To Enter/Railing? 12+3 steps to enter with single rail (2nd floor condo) Home Equipment Straight Cane Additional Social History Comment splits his time 50/50 at their second home in [place], but will plan to stay at their home here when she d/c's. M2 PT-IP Current Condition Start: 02/19/23 15:03 Freq: NEEDED Status: Active Protocol: Document 02/19/23 15:03 ES (Rec: 02/19/23 15:18 ES [id number]) Physical Therapy Current Condition Current Condition Evaluation Date 02/19/23 Treatment Diagnosis Sepsis, LLE cellulitis, acute encephalopathy, weakness Onset Date 02/18/23 M3 PT-IP Subjective Start: 02/19/23 15:03 Freq: NEEDED Status: Active Protocol: Document 02/19/23 15:03 ES (Rec: 02/19/23 15:18 ES [id number]) Subjective Physical Therapy Visit Type Type Initial Evaluation Visit Start Time 13:44 Visit Stop Time 14:13 Total Visit Minutes 29 Physical Therapy Visit Comments Patient Comments Patient up in chair, and son present at start of visit. Patient agreeable to work with PT. Stated she has been having more difficulty walking recently due to a chronic back problem for which she was scheduled to have surgery in March. States she is feeling better today and thinks her leg is less red than when she came in. Therapy Pain Assessment Pain When Pain Assessed At Rest Pain Present Pain Present Pain Reported Location Left calf Intensity 3 Scale Used Numeric (0 - 10) Pain Management Techniques Apply Cold M4 PT-IP Mobility and Gait Start: 02/19/23 15:03 Freq: NEEDED Status: Active Protocol: Document 02/19/23 15:03 ES (Rec: 02/19/23 15:18 ES [id number]) PT-Transfer Assessment Sit to and From Stand Sit to and from Stand Standby Assistance,Use of Upper Extremities Equipment Transfer Assistive Device Front Wheeled Walker Transfers Transfer Destination Toilet Transfer Technique Ambulation Transfer Ability Level of Assist Standby Assistance Comments Mobility Comments Cues for hand placement using FWW for safety. Instructed to use grab bar next to toilet to assist with toilet transfer. Instructed to use scooting technique for sit to/from stand to reduce forward flexion to reduce back pain. Gait Assessment Gait Gait Assistance Required: Standby Assistance Distance (Feet) 110 Assistive Devices Assistive Device Front Wheeled Walker Gait Deviations General Gait Pattern Antalgic,Decreased Stride Length,Decreased Feet Clearance,Wide Based Gait Factors Limiting Gait Function Factors Limiting Gait Function Decreased Strength,Pain,Poor Balance Comments Gait Comments Ambulated with shuffling pattern, decreased mary kate and velocity. Recommended she continue to use FWW for safety until able to improve gait pattern and pain is improved. PT-Balance Assessment Sitting Balance and Reactions Static Sitting Balance Ability Good Dynamic Sitting Balance Ability Good Standing Balance and Reactions Static Standing Balance Ability Good Dynamic Standing Balance Ability Fair Device Used FWW Comments Other Balance Tests/Deviations/Treatment Able to stand at sink without : UE support to wash face/hands. M5 PT-IP Objective Assessments Start: 02/19/23 15:03 Freq: NEEDED Status: Active Protocol: Document 02/19/23 15:03 ES (Rec: 02/19/23 15:18 ES [id number]) Orientation Orientation/Cognition Level of Alertness Alert Orientation Name,Age,Birthday,Month,Date, Year,Day of Week,Place, Situation Language Function Ability No Deficits Noted Safety Awareness Understands Safety Issues Memory Description No Deficits Noted Gross Range of Motion Upper Extremity ROM Assessment Within Functional Limits Lower Extremity ROM Assessment Within Functional Limits Strength Upper Extremity Strength Assessment Within Functional Limits Lower Extremity Strength Assessment Bilaterally Impaired Comments Strength Comments General weakess BLE's. Unable to perform STS without UE support. Coordination Assessment Gross Coordination Gross Coordination WNL Sensation Assessment Comments Sensation Comments Patient reported she has neuropathy in BLE's in her thighs and feet from cancer treatment. M6 PT-IP Treatment Start: 02/19/23 15:03 Freq: NEEDED Status: Active Protocol: Document 02/19/23 15:03 ES (Rec: 02/19/23 15:18 ES [id number]) Physical Therapy Treatment Education Education Provided Safety M7 PT-IP Assessment and Plan Start: 02/19/23 15:03 Freq: NEEDED Status: Active Protocol: Document 02/19/23 15:03 ES (Rec: 02/19/23 15:18 ES [id number]) PT Summary Assessment and Plan Potential Rehabilitation Potential Good Status of Condition at Evaluation Evolving Summary Impairments Pain,Strength,Balance, Transfers,Gait,Activity Tolerance Assessment Summary Patient is a 77 year old female who presents with impaired functional mobility due to pain, weakness, and decreased balance. Recommend she use FWW to reduce fall risk due to shuffling gait and chronic back and LE pain in addition to neuropathy in her legs. She would benefit from skilled therapy during acute stay to reduce risk of functional decline and improve her safety and independence with mobility in addition to determining equipment needs for home. Anticipate she will be able to d/c home with family, possibly HHPT depending on progress during hospitalization. Goals Bed Mobility Goal Independent Transfer Goal Independent Gait Goal Independent Gait Distance 200 Other Goals Patient will be able to ascend /descend 15 stairs with single rail and cane with SBA. Days to Meet Goals 7 Frequency of Treatment Frequency Of Treatment Once a Day Treatment Plan Physical Therapy Treatment Plan Bed Mobility Training,Transfer Training,Gait Training, Therapeutic Exercise,Balance Retraining,Discharge Planning, Hot or Cold Pack Other Recommendations and Next Treatment Progress ambulation with LRAD Focus (occasional use of cane at baseline, may need FWW), strengthening ex's. Stair training when appropriate. Precautions Other Precautions Fall risk Weight Bearing Status Weight Bearing Status Weight Bear as Tolerated Recommendations To Nursing Amount of Assist Needed Standby Assistance Discharge Recommendations PT Discharge Recommendations Home with Assistance,Home Health Equipment Needed for Home Before May need FWW Discharge Transportation Needs at Discharge Private Vehicle
[2023-02-19] MEDS: ATORVASTATIN 20 MG TABLET PO (20:51)
[2023-02-19] MEDS: INSULIN GLARGINE 100 UNIT/ML 3ML PEN SUBCUT (21:00)
[2023-02-20] VITALS (10 sets, daily range): BP systolic 123–143; BP diastolic 63–80; PULSE 69–81; RESP 16–19; TEMP 36.2–37.5; O2SAT 94–97
[2023-02-20] MEDS: WATER IV ×6 (00:47→21:28)
[2023-02-20] MEDS: DEXTROSE 5% IV ×6 (00:47→21:28)
[2023-02-20] MEDS: PENICILLIN POTASSIUM IV ×6 (00:47→21:28)
[2023-02-20] MEDS: CLINDAMYCIN 900 MG in SODIUM CHLORIDE 0.9% 100 ML 106 MG IV ×3 (01:50→17:16)
[2023-02-20 04:53] LABS: BUN Creatinine Ratio 15.6 (6-22); Blood Urea Nitrogen 10 mg/dL (7-17); Carbon Dioxide 29 mmol/L (22-32); Chloride 94 mmol/L (98-107); Estimated Glomerular Filt Rate > 60 mL/min (>60); Glucose 205 mg/dL (80-110); HEMOLYSIS < 15 (0-50); Sodium 130 mmol/L (137-145)
[2023-02-20 04:56] LABS: Add Manual Diff / Slide Review NO; Basophils Absolute Auto 0 /uL (0-100); Basophils Percent Auto 0.4 % (0-2); Eosinophils Absolute Auto 400 /uL (0-450); Eosinophils Percent Auto 4.8 % (2-4); Hematocrit 30.9 % (36-46); Hemoglobin 11.1 g/dL (12.0-16.0); Lymphocytes Absolute Auto 800 /uL (1100-4500); Lymphocytes Percent Auto 10.8 % (25-40); Mean Corpuscular Hemoglobin 32.3 PG (26-34); Mean Corpuscular Volume 89.7 fL (80-100); Monocytes Absolute Auto 700 /uL (0-900); Monocytes Percent Auto 9.6 % (3-14); Neutrophils Absolute Auto 5700 /uL (1500-7000); Neutrophils Percent Auto 74.4 % (50-75); Platelet Count 244 X10^3/uL (150-400); Red Blood Cell Count 3.45 X10^6/uL (4.0-5.2); White Blood Cell Count 7.7 X10^3/uL (4.5-11.0)
[2023-02-20] MEDS: GABAPENTIN 300 MG CAPSULE 900 MG PO ×3 (10:00→21:30)
[2023-02-20] MEDS: HEPARIN 5,000 UNIT/ML VIAL 5000 UNIT SUBCUT ×2 (10:08→21:59)
[2023-02-20] MEDS: carvediloL 12.5 MG TABLET PO ×2 (10:09→21:34)
[2023-02-20] MEDS: LOSARTAN 50 MG TABLET PO (10:09)
[2023-02-20] MEDS: CHLORTHALIDONE 25 MG TABLET PO (10:10)
[2023-02-20] MEDS: DULOXETINE 20 MG CAPSULE 40 MG PO (10:11)
--- NOTE | 2023-02-20 14:05 | PT.IPTN ---
Current Diagnoses Sepsis, unspecified organism (02/18/23) Physical Therapy Treatment Note M2 PT-IP Current Condition Start: 02/19/23 15:03 Freq: NEEDED Status: Active Protocol: Document 02/19/23 15:03 ES (Rec: 02/19/23 15:18 ES [id number]) Physical Therapy Current Condition Current Condition Evaluation Date 02/19/23 Treatment Diagnosis Sepsis, LLE cellulitis, acute encephalopathy, weakness Onset Date 02/18/23 M3 PT-IP Subjective Start: 02/19/23 15:03 Freq: NEEDED Status: Active Protocol: Document 02/20/23 14:05 AB (Rec: 02/20/23 15:56 AB [id number]) Subjective Physical Therapy Visit Type Type Treatment Note Visit Start Time 14:05 Visit Stop Time 14:48 Total Visit Minutes 43 Number of WORLD TRAV[employer] COUNSELOR Visits 0 Physical Therapy Visit Comments Patient Comments agreeable to do PT Therapy Pain Assessment Pain When Pain Assessed At Rest Pain Present Pain Present Pain Reported Location Left calf Intensity 2 Scale Used Numeric (0 - 10) Pain Management Techniques Distraction,Elevation, Modification of Treatment,Re- positioning,Timing of Activity with Medications M4 PT-IP Mobility and Gait Start: 02/19/23 15:03 Freq: NEEDED Status: Active Protocol: Document 02/20/23 14:05 AB (Rec: 02/20/23 15:56 AB [id number]) PT-Bed Mobility Assessment Supine to Sit Supine to Sit Standby Assistance,Head of Bed Elevated Sit to Supine Sit to Supine Standby Assistance,Head of Bed Elevated PT-Transfer Assessment Sit to and From Stand Sit to and from Stand Standby Assistance,Use of Upper Extremities Equipment Transfer Assistive Device Gait Belt,Front Wheeled Walker Orthotic/Prosthetic Devices or Brace: No Transfer Ability Level of Assist Standby Assistance,Contact Guard Assistance,1 Person Assistance,Use of Upper Extremities Comments Mobility Comments pt completed supine to sit SBA . able to sit on EOB SBA. Pt' s son arrived. pt completed sit to stand sBA and ambulated in room using FWW SBA to CGA ~ 30 ft. Assessed ambulation using SPC. educated pt on use of SPC. pt stated that she has chronic RLE pain/weakness due to her herniated disc on her back and uses her SPC on her L side. completed ambulation using SPC min A and max cues ~ 40 ft. pt sat back on EOB and agreed to do stairs. pt ambulated using SPC towards the stairs ~ 175 ft CGA to min A and max cues. Pt presents with decrease step width and with increase lateral shifting to the L with (+) LOB x 5 to the L requiring min A for recovery. pt also gets easily distracted affecting safety. pt completed up/down stairs holding on to R rail with B hands and doig side stepping CGA. pt ambulated back to her room ~ 200 ft SBA to CGA using FWW. Recommending use of FWW at this time and pt agreed. pt stated that she will borrow from the [facility] but if she goes home before [facility] opens on wednesday, she wants to obtain one from [facility] through the hospital. Gait Assessment Gait Gait Assistance Required: Standby Assistance,Contact Guard Assist,Minimum Assistance,1 Person Assist Distance (Feet) 200 Able to Maintain Weight Bearing Status Yes During Gait Assistive Devices Assistive Device None,Gait Belt,Front Wheeled Walker Orthotic/Prosthetic Devices or Brace: No Gait Deviations General Gait Pattern Antalgic,Decreased Stride Length,Decreased Feet Clearance,Narrow Based Gait Factors Limiting Gait Function Factors Limiting Gait Function Decreased Activity Tolerance, Decreased Sensation,Decreased Strength,Pain,Poor Balance, Poor Safety Awareness Stair Climbing Assessment Evaluation Level of Assist On Stairs Contact Guard Assistance Devices Stair Climbing Assistive Devices Right Railing Technique/Endurance Stair Climbing Direction Ascend and Descend Stair Climbing Technique Step to Step Number of Steps Climbed 3 Stair Climbing Set # Repetitions (reps) 3 M5 PT-IP Objective Assessments Start: 02/19/23 15:03 Freq: NEEDED Status: Active Protocol: Document 02/19/23 15:03 ES (Rec: 02/19/23 15:18 ES [id number]) Orientation Orientation/Cognition Level of Alertness Alert Orientation Name,Age,Birthday,Month,Date, Year,Day of Week,Place, Situation Language Function Ability No Deficits Noted Safety Awareness Understands Safety Issues Memory Description No Deficits Noted Gross Range of Motion Upper Extremity ROM Assessment Within Functional Limits Lower Extremity ROM Assessment Within Functional Limits Strength Upper Extremity Strength Assessment Within Functional Limits Lower Extremity Strength Assessment Bilaterally Impaired Comments Strength Comments General weakess BLE's. Unable to perform STS without UE support. Coordination Assessment Gross Coordination Gross Coordination WNL Sensation Assessment Comments Sensation Comments Patient reported she has neuropathy in BLE's in her thighs and feet from cancer treatment. M6 PT-IP Treatment Start: 02/19/23 15:03 Freq: NEEDED Status: Active Protocol: Document 02/20/23 14:05 AB (Rec: 02/20/23 15:56 AB [id number]) Physical Therapy Treatment Education Education Provided Safety M7 PT-IP Assessment and Plan Start: 02/19/23 15:03 Freq: NEEDED Status: Active Protocol: Document 02/20/23 14:05 AB (Rec: 02/20/23 15:56 AB [id number]) PT Summary Assessment and Plan Potential Rehabilitation Potential Good Summary Impairments Pain,ROM,Strength,Balance, Coordination,Sensation, Cognition,Bed Mobility, Transfers,Gait,Activity Tolerance Progress Towards Goals Slow Progress due to Pain,Slow Progress due to Activity Tolerance Assessment Summary pt requiring SBA to CGA with ambulation using FWW but requires CGA to min A with use of SPC. Recommending FWW for d/c home at this time and pt to work on ambulation using SPC with PT while here in the hospital. pt plans to go home and her son will assist her at home. Pt will need homehealth PT. Goals Bed Mobility Goal Independent Transfer Goal Cane,Front Wheeled Walker Gait Goal Independent,Cane,Front Wheel Walker Gait Distance 300 Other Goals improve transfers and ambulation without AD 300 ft SBA up/down 15 steps R rail ascending SBA Days to Meet Goals 10 Frequency of Treatment Frequency Of Treatment Once a Day Treatment Plan Physical Therapy Treatment Plan Bed Mobility Training,Transfer Training,Gait Training, Therapeutic Exercise,Balance Retraining,Discharge Planning, Hot or Cold Pack,Neuromuscular Re-ed Recommendations To Nursing Amount of Assist Needed 1 Person Assist Discharge Recommendations PT Discharge Recommendations Home with Assistance,Home Health Equipment Needed for Home Before FWW if not safe with SPC/ Discharge without AD Transportation Needs at Discharge Private Vehicle
--- NOTE | 2023-02-20 14:59 | P.PN_ITS ---
Subjective Subjective Interval history: 77-year-old female with diabetes, hypertension, peripheral neuropathy, Jo, multinodular goiter, history of ductal carcinoma in Situ of bilateral breasts, and class 1 obesity who was admitted with sepsis, left lower extremity cellulitis, strep bacteremia, and transaminitis. Patient reports she is feeling a bit better each day. She notes that she had been wearing flip-flops and gardening. She does admit to neuropathy. She does not check her feet daily. She feels that redness to her left leg is improving. Her sister, who is a aircraft air conditioning mechanic from [place], is present at bedside. Exam Vital Signs (past 8 hours): - 02/20/23 08:14 02/20/23 10:00 Temperature 98 F Pulse Rate 81 Respiratory Rate 16 Blood Pressure 130/73 Pulse Oximetry 97 97 Oxygen Delivery Method Room Air Oxygen Flow Rate 0 Oxygen Delivery Method Room Air Oxygen Flow Rate 0 Narrative Exam Narrative: GEN: Very pleasant elderly female, Alert and oriented x 3, NAD HEENT:NC, Face symmetric CHEST: Respiratory excursions symmetric, CTAB CV: RRR, no M/R/G ABD: Soft, NT/ND, BT present in all 4 quadrants, body habitus limits exam EXTR: warm, well perfused, no C/C, left great toe reveals a blistered area subungual region, mild surrounding erythema, no tenderness to manipulation of the joint, left pretibial area reveals mild pink erythema, decreased swelling, and recession of the erythema away from the previously demarcated lines, upper left thigh again reveals some pink tinged erythema, mild warmth, no significant tenderness, mild recession of the erythema from the demarcated line SKIN: warm and dry, no rash NEURO: Alert and oriented x 3, nonfocal Objective Labs 02/20/23 04:23 02/20/23 04:23 Labs: Laboratory Results - last 24 hr 02/20/23 02/20/23 04:23 04:23 WBC 7.7 RBC 3.45 L Hgb 11.1 L Hct 30.9 L MCV 89.7 MCH 32.3 MCHC 36.0 RDW 13.0 Plt Count 244 Neut % (Auto) 74.4 Lymph % (Auto) 10.8 L [place] % (Auto) 9.6 Eos % (Auto) 4.8 H Baso % (Auto) 0.4 Neut # (Auto) 5700 Lymph # (Auto) 800 L [place] # (Auto) 700 Eos # (Auto) 400 Baso # (Auto) 0 Sodium 130 L Potassium 4.0 Chloride 94 L Carbon Dioxide 29 BUN 10 Creatinine 0.64 Estimated GFR > 60 BUN/Creatinine Ratio 15.6 Glucose 205 H Calcium 9.0 PFSH Medical History Allergic rhinitis Asthma Cervicalgia Chronic low back pain Ductal carcinoma in situ (DCIS) of left breast (2001) Ductal carcinoma in situ (DCIS) of right breast (2003) Edema Essential hypertension Herniated nucleus pulposus, L4-5 Herniated nucleus pulposus, lumbar Hyperparathyroidism Lumbar foraminal stenosis Lumbosacral radiculopathy at L4 Mixed hyperlipidemia JO (nonalcoholic steatohepatitis) Neuropathy Non-toxic multinodular goiter Osteoarthrosis Overweight Port-A-Cath in place (11/23/17) Type 2 diabetes mellitus with polyneuropathy Venous (peripheral) insufficiency Surgical History History of left mastectomy (2001) History of right mastectomy (2003) History of robot-assisted laparoscopic hysterectomy Hx of cholecystectomy Hx of lithotripsy Social History household members: spouse Smoking Status: Never smoker alcohol intake: current Assessment & Plan Assessment & Plan narrative: 1. Sepsis, secondary to left leg cellulitis and bacteremia Sepsis physiology has resolved. She is afebrile, heart rate has normalized, respiratory rate has normalized. 2. Left lower extremity cellulitis She will continue elevating her leg while in bed. Continue present treatment with penicillin and clindamycin given positive blood cultures. 3. Group a strep bacteremia High-grade bacteremia with 4/4 bottles positive for group a strep. Follow-up cultures drawn last evening are negative to date. Will discuss with Infectious Disease tomorrow once 48 hour follow-up cultures have resulted. Patient may require IV antibiotics for 2 weeks as she has underlying diabetes which causes immunosuppression and is scheduled for back surgery next month. 4. Diabetes mellitus type 2 Overall well controlled at baseline, but blood sugars have been in the 200s here, likely secondary to both infection and decreased activity level. Will increase Lantus from 5-10 units at bedtime. Discussed the importance with her peripheral neuropathy of checking her feet daily and using only closed toed shoes. 5. Transaminitis LFTs have been improving compared to admission, but are still above her baseline. We will repeat labs again tomorrow to ensure they continue to improve. She does have underlying JO. 6. Hyponatremia Improving off of IVFs. Today it is up from 128 to 130. 7. Hypokalemia Improved w/repletion 8. Lumbar radiculopathy As noted, patient is scheduled for surgery next month Code status Full Prophylaxis On heparin Disposition Possible discharge home tomorrow or the next day pending recommendations on antibiotics. Surrogate decision maker: Brady maurice, spouse
--- NOTE | 2023-02-20 15:46 | PC.NURSE ---
Pt A/O Denies discomfort when asked. LLE pinkish,slightly tender to touch. HL RAC intact/patent for IVBP ABO Ambulated halls w/PT w/o incidence. CBG.230 210 pt ref S/S Call light w/in reach, bed alarm on for pt safety. Continue w/plan of care.
[2023-02-20] MEDS: INSULIN LISPRO 100 UNIT/ML 3ML VIAL SUBCUT (17:13)
[2023-02-20] MEDS: ATORVASTATIN 20 MG TABLET PO (21:30)
[2023-02-20] MEDS: INSULIN GLARGINE 100 UNIT/ML 3ML PEN 10 UNIT SUBCUT (21:35)
[2023-02-21] VITALS (12 sets, daily range): BP systolic 124–139; BP diastolic 53–76; PULSE 71–82; RESP 17–19; TEMP 36.3–37.3; O2SAT 92–97
[2023-02-21] MEDS: WATER IV ×3 (00:11→08:28)
[2023-02-21] MEDS: DEXTROSE 5% IV ×3 (00:11→08:28)
[2023-02-21] MEDS: PENICILLIN POTASSIUM IV ×3 (00:11→08:28)
[2023-02-21] MEDS: CLINDAMYCIN 900 MG in SODIUM CHLORIDE 0.9% 100 ML 106 MG IV ×2 (01:38→11:45)
[2023-02-21] MEDS: ACETAMINOPHEN 325 MG TABLET 650 MG PO ×2 (05:40→15:37)
[2023-02-21 05:49] LABS: Add Manual Diff / Slide Review NO; Alanine Aminotransferase 135 IU/L (<35); Albumin 3.1 g/dL (3.5-5.0); Albumin Globulin Ratio 1.4 (1.0-2.8); Alkaline Phosphatase 154 U/L (38-126); Aspartate Aminotransferase 86 IU/L (14-36); Basophils Absolute Auto 0 /uL (0-100); Basophils Percent Auto 0.5 % (0-2); Bilirubin Total 0.7 mg/dL (0.2-1.3); Bilirubin Unconjugated 0.4 mg/dL (0.0-1.1); Eosinophils Absolute Auto 400 /uL (0-450); Globulin 2.2 g/dL (1.7-4.1); HEMOLYSIS < 15 (0-50); Hematocrit 32.3 % (36-46); Hemoglobin 11.5 g/dL (12.0-16.0); Lymphocytes Absolute Auto 1500 /uL (1100-4500); Lymphocytes Percent Auto 19.6 % (25-40); Mean Corpuscular HGB Conc 35.7 % (30-36); Mean Corpuscular Hemoglobin 32.1 PG (26-34); Monocytes Absolute Auto 900 /uL (0-900); Neutrophils Absolute Auto 4800 /uL (1500-7000); Neutrophils Percent Auto 62.9 % (50-75); Platelet Count 273 X10^3/uL (150-400); Red Blood Cell Count 3.59 X10^6/uL (4.0-5.2); Red Cell Distribution Width 12.7 % (11.6-14.8); Total Protein 5.3 g/dL (6.3-8.2); White Blood Cell Count 7.7 X10^3/uL (4.5-11.0)
[2023-02-21 05:50] LABS: BUN Creatinine Ratio 17.2 (6-22); Blood Urea Nitrogen 10 mg/dL (7-17); Calcium 9.5 mg/dL (8.4-10.2); Carbon Dioxide 27 mmol/L (22-32); Chloride 94 mmol/L (98-107); Estimated Glomerular Filt Rate > 60 mL/min (>60); Glucose 222 mg/dL (80-110); HEMOLYSIS 16 (0-50); Potassium 3.9 mmol/L (3.4-5.1); Sodium 128 mmol/L (137-145)
[2023-02-21] MEDS: INSULIN LISPRO 100 UNIT/ML 3ML VIAL SUBCUT ×4 (08:26→22:02)
[2023-02-21] MEDS: GABAPENTIN 300 MG CAPSULE 900 MG PO ×3 (08:26→20:41)
[2023-02-21] MEDS: LOSARTAN 50 MG TABLET PO (08:26)
[2023-02-21] MEDS: CHLORTHALIDONE 25 MG TABLET PO (08:27)
[2023-02-21] MEDS: MULTIVITAMIN 1 TABLET 1 TAB PO (08:27)
[2023-02-21] MEDS: HEPARIN 5,000 UNIT/ML VIAL 5000 UNIT SUBCUT ×2 (08:27→20:42)
[2023-02-21] MEDS: carvediloL 12.5 MG TABLET PO ×2 (08:27→20:40)
--- NOTE | 2023-02-21 09:22 | PT.IPTN ---
Current Diagnoses Sepsis, unspecified organism (02/18/23) Physical Therapy Treatment Note M2 PT-IP Current Condition Start: 02/19/23 15:03 Freq: NEEDED Status: Active Protocol: Document 02/19/23 15:03 ES (Rec: 02/19/23 15:18 ES [id number]) Physical Therapy Current Condition Current Condition Evaluation Date 02/19/23 Treatment Diagnosis Sepsis, LLE cellulitis, acute encephalopathy, weakness Onset Date 02/18/23 M3 PT-IP Subjective Start: 02/19/23 15:03 Freq: NEEDED Status: Active Protocol: Document 02/21/23 09:05 KS (Rec: 02/21/23 10:18 KS [id number]) Subjective Physical Therapy Visit Type Type Treatment Note Visit Start Time 09:05 Visit Stop Time 09:22 Total Visit Minutes 17 Number of DRAWER MAKER Visits 1 Physical Therapy Visit Comments Patient Comments agreeable to do PT M4 PT-IP Mobility and Gait Start: 02/19/23 15:03 Freq: NEEDED Status: Active Protocol: Document 02/21/23 09:05 KS (Rec: 02/21/23 10:18 KS [id number]) PT-Bed Mobility Assessment Supine to Sit Supine to Sit Standby Assistance Sit to Supine Sit to Supine Standby Assistance PT-Transfer Assessment Sit to and From Stand Sit to and from Stand Standby Assistance,Use of Upper Extremities Equipment Transfer Assistive Device Gait Belt,Front Wheeled Walker Orthotic/Prosthetic Devices or Brace: No Transfers Transfer Destination Bed Transfer Technique Ambulation Transfer Ability Level of Assist Standby Assistance,Contact Guard Assistance,1 Person Assistance,Use of Upper Extremities Comments Mobility Comments Pt in bed upo arrival, feeling much better today. SBA for sup<>sit and sit<>stand w/ FWW . Pt ambulated ~30 ft w/ FWW ad additional 70 ft w/o AD. No LOB but does appear more stable w/ FWW. Pt states she wants to wait until Wednesday to get FWW from [facility] because she feels more stable today, has SPC, and significant family support. SBA for sit<>sup pt left in bed w/ all needs in reach. Gait Assessment Gait Gait Assistance Required: Standby Assistance,Contact Guard Assist,Minimum Assistance,1 Person Assist Distance (Feet) 100 Able to Maintain Weight Bearing Status Yes During Gait Assistive Devices Assistive Device None,Gait Belt,Front Wheeled Walker Orthotic/Prosthetic Devices or Brace: No Gait Deviations General Gait Pattern Antalgic,Decreased Stride Length,Decreased Feet Clearance,Narrow Based Gait Factors Limiting Gait Function Factors Limiting Gait Function Decreased Activity Tolerance, Decreased Sensation,Decreased Strength,Pain,Poor Balance, Poor Safety Awareness Comments Gait Comments 30 ft w. FWW, 70 ft w/o AD. No LOB, CGA more stable w/ FWW but at this time prefers to obtain from [facility] rather than hospital. PT-Balance Assessment Sitting Balance and Reactions Static Sitting Balance Ability Good Dynamic Sitting Balance Ability Good Standing Balance and Reactions Static Standing Balance Ability Good Dynamic Standing Balance Ability Fair Device Used no ad M5 PT-IP Objective Assessments Start: 02/19/23 15:03 Freq: NEEDED Status: Active Protocol: Document 02/19/23 15:03 ES (Rec: 02/19/23 15:18 ES [id number]) Orientation Orientation/Cognition Level of Alertness Alert Orientation Name,Age,Birthday,Month,Date, Year,Day of Week,Place, Situation Language Function Ability No Deficits Noted Safety Awareness Understands Safety Issues Memory Description No Deficits Noted Gross Range of Motion Upper Extremity ROM Assessment Within Functional Limits Lower Extremity ROM Assessment Within Functional Limits Strength Upper Extremity Strength Assessment Within Functional Limits Lower Extremity Strength Assessment Bilaterally Impaired Comments Strength Comments General weakess BLE's. Unable to perform STS without UE support. Coordination Assessment Gross Coordination Gross Coordination WNL Sensation Assessment Comments Sensation Comments Patient reported she has neuropathy in BLE's in her thighs and feet from cancer treatment. M6 PT-IP Treatment Start: 02/19/23 15:03 Freq: NEEDED Status: Active Protocol: Document 02/21/23 09:05 KS (Rec: 02/21/23 10:18 KS [id number]) Physical Therapy Treatment Exercises Exercises Ankle Pumps Education Education Provided Safety M7 PT-IP Assessment and Plan Start: 02/19/23 15:03 Freq: NEEDED Status: Active Protocol: Document 02/21/23 09:05 KS (Rec: 02/21/23 10:18 KS [id number]) PT Summary Assessment and Plan Potential Rehabilitation Potential Good Summary Impairments Pain,ROM,Strength,Balance, Coordination,Sensation, Cognition,Bed Mobility, Transfers,Gait,Activity Tolerance Progress Towards Goals Slow Progress due to Activity Tolerance Assessment Summary Pt showing progress, SBA for bed mobility, SBA to CGA for ambulation. Ambulated 70 ft w/ o AD today w/o LOB but still appears safer w/ FWW. Pt states she will obtain FWW from [facility] on Wednesday and use [facility] if she goes home before that. She will benefit from HHPT. Goals Bed Mobility Goal Independent Transfer Goal Cane,Front Wheeled Walker Gait Goal Independent,Cane,Front Wheel Walker Gait Distance 300 Other Goals improve transfers and ambulation without AD 300 ft SBA up/down 15 steps R rail ascending SBA Days to Meet Goals 10 Frequency of Treatment Frequency Of Treatment Once a Day Treatment Plan Physical Therapy Treatment Plan Bed Mobility Training,Transfer Training,Gait Training, Therapeutic Exercise,Balance Retraining,Discharge Planning, Hot or Cold Pack,Neuromuscular Re-ed Weight Bearing Status Weight Bearing Status Weight Bear as Tolerated Recommendations To Nursing Amount of Assist Needed 1 Person Assist Discharge Recommendations PT Discharge Recommendations Home with Assistance,Home Health Equipment Needed for Home Before FWW if not safe with SPC/ Discharge without AD althought wants to go home w/o and get from [facility] wednesday. Pt aware of PT recommendation for FWW use for increased safety and stability. Transportation Needs at Discharge Private Vehicle
--- NOTE | 2023-02-21 12:07 | PM.PN.1 ---
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 Patient reports she is feeling fairly well overall today. She was up and ambulating yesterday without difficulty. She is able to take a shower. She feels her leg is improving. Appetite preserved. . Exam Vital Signs (past 8 hours): - 02/20/23 15:58 02/20/23 16:00 02/20/23 20:00 Temperature 97.9 F 99.5 F Pulse Rate 77 77 Respiratory Rate 18 19 Blood Pressure 133/80 142/73 H Pulse Oximetry 97 95 96 Oxygen Delivery Method Room Air Oxygen Flow Rate 0 Oxygen Delivery Method Room Air Oxygen Flow Rate 0 Narrative Exam Narrative: GEN:? Very pleasant elderly female, Alert and oriented x 3, NAD HEENT:NC, Face symmetric CHEST: Respiratory excursions symmetric, CTAB CV: RRR, no M/R/G ABD: Soft, NT/ND, BT present in all 4 quadrants, body habitus limits exam EXTR: warm, well perfused, no C/C, left great toe reveals a blistered area subungual region, decreased mild surrounding erythema, no tenderness to manipulation of the joint, left pretibial area reveals mild pink erythema, again decreased. Yesterday, decreased swelling, upper left thigh fading erythema noted, some extension posteriorly, which appears to be secondary to lying in bed and gravity; 3+ generalized left lower extremity edema which is increased compared to the right SKIN: warm and dry, no rash NEURO: Alert and oriented x 3, nonfocal Objective Labs 02/21/23 04:43 02/21/23 04:43 Labs: Laboratory Results - last 24 hr 02/20/23 02/20/23 04:23 04:23 WBC 7.7 RBC 3.45 L Hgb 11.1 L Hct 30.9 L MCV 89.7 MCH 32.3 MCHC 36.0 RDW 13.0 Plt Count 244 Neut % (Auto) 74.4 Lymph % (Auto) 10.8 L Rawlins % (Auto) 9.6 Eos % (Auto) 4.8 H Baso % (Auto) 0.4 Neut # (Auto) 5700 Lymph # (Auto) 800 L Rawlins # (Auto) 700 Eos # (Auto) 400 Baso # (Auto) 0 Sodium 130 L Potassium 4.0 Chloride 94 L Carbon Dioxide 29 BUN 10 Creatinine 0.64 Estimated GFR > 60 BUN/Creatinine Ratio 15.6 Glucose 205 H Calcium 9.0 PFSH Medical History Allergic rhinitis Asthma Cervicalgia Chronic low back pain Ductal carcinoma in situ (DCIS) of left breast (2001) Ductal carcinoma in situ (DCIS) of right breast (2003) Edema Essential hypertension Herniated nucleus pulposus, L4-5 Herniated nucleus pulposus, lumbar Hyperparathyroidism Lumbar foraminal stenosis Lumbosacral radiculopathy at L4 Mixed hyperlipidemia GONZALEZ (nonalcoholic steatohepatitis) Neuropathy Non-toxic multinodular goiter Osteoarthrosis Overweight Port-A-Cath in place (11/23/17) Type 2 diabetes mellitus with polyneuropathy Venous (peripheral) insufficiency Surgical History History of left mastectomy (2001) History of right mastectomy (2003) History of robot-assisted laparoscopic hysterectomy Hx of cholecystectomy Hx of lithotripsy Social History household members: spouse Smoking Status: Never smoker alcohol intake: current Assessment & Plan Assessment & Plan narrative: 1. Left lower extremity cellulitis She will continue elevating her leg while in bed.? Discussed her care with Dr. Bert Scott, Infectious Disease on-call for [facility]. He recommended transitioning to IV ceftriaxone once a day for 14 days. Discontinuing clindamycin and penicillin. 2. Group a strep bacteremia High-grade bacteremia with 4/4 bottles positive for group a strep.? Follow-up cultures remain negative to date. ID doctor recommends 2 weeks of IV antibiotics. Will have a midline IV placed tomorrow. 3. Diabetes mellitus type 2 Overall well controlled at baseline, but blood sugars have been in the 200s here, likely secondary to both infection and decreased activity level.? Continue Lantus 10 units at bedtime. Restart metformin. Discussed the importance with her peripheral neuropathy of checking her feet daily and using only closed toed shoes. ? 4. Transaminitis LFTs have been improving compared to admission, but are still above her baseline.? Nearly back to baseline. She does have underlying GONZALEZ. 5. Hyponatremia Sodium down today. Given her lower extremity edema and the fact that she is been off of Lasix, this will be resumed. 6. Hypokalemia Resolved 7. Lumbar radiculopathy As noted, patient is scheduled for surgery next month Resolved issues: Sepsis Code status Full Prophylaxis On heparin Disposition Plan midline IV cath placement tomorrow. Care management arranging outpatient IV antibiotics. Surrogate decision maker: Brady maurice, spouse
[2023-02-21] MEDS: FUROSEMIDE 20 MG TABLET PO (12:29)
[2023-02-21] MEDS: cefTRIAXone 1,000 MG in SODIUM CHLORIDE 0.9% 100 ML 200 MG IV (12:29)
--- NOTE | 2023-02-21 12:56 | CM.DPNOTE ---
Discharge Planning Note: Spoke with Dr Guerrero who wants patient to have Rocephin Q24 hour infusions for 2 weeks for positive cultures. Spoke with patient and discussed options of receiving IVAB at home with home infusion company or to go daily [facility]. After discussion with family she has decided to go with the outpatient infusions. Discussed that Dr Guerrero will order a longterm IV placement for tomorrow and her Rocephin infusion midday. She is receiving her 1st dose today. Explained that after those occur tomorrow, she can be discharged per hospitalist and so her first dose at outpatient would be Wednesday. Educated patient, sister and son re the plan who are supportive. Plan: Care management to arrange with [facility] for her infusions to start 02/23/23. Julia Haddad RN/DCP
[2023-02-21] MEDS: ATORVASTATIN 20 MG TABLET PO (20:40)
[2023-02-21] MEDS: METFORMIN XR 500 MG TABLET PO (20:41)
[2023-02-21] MEDS: INSULIN GLARGINE 100 UNIT/ML 3ML PEN 10 UNIT SUBCUT (22:01)
[2023-02-22] VITALS: BP 118/49; PULSE 80; RESP 17; TEMP 36.6; O2SAT 94
[2023-02-22 06:00] VITALS: BP 101/54; PULSE 85; RESP 18; TEMP 36.1; O2SAT 94
[2023-02-22 08:22] VITALS: BP 145/89; PULSE 83; RESP 16; TEMP 36.2; O2SAT 96
[2023-02-22] MEDS: INSULIN LISPRO 100 UNIT/ML 3ML VIAL SUBCUT ×2 (08:25→12:48)
--- NOTE | 2023-02-22 08:25 | CM.DPC ---
Addendum entered by Caryl Garcia R.N. 02/22/23 11:12: Faxed over the signed infusion form, Dr. Guzman signed, and added follow up labs, included auth number. Faxed over prescription, copied for scanning, and gave original to patient. Addendum entered by Caryl Garcia R.N. 02/22/23 09:36: Spoke to Betzaida at [place], received the auth, [id number]. Wrote the auth number on the form, will need to see about labs. Shahrzad from [facility] came over to meet patient. Addendum entered by Caryl Garcia R.N. 02/22/23 08:57: Checked in with patient, confirmed that she wants to go to outpatient infusion, lives [place] 3 miles away. Awaiting PICC line placement. Have continued to attempt calling [place], there were 8 calls ahead. Called over at oncology, spoke to Kym, about referral. Gave an alternate phone number of: [phone] for [place] auth.Let her know about the referral, she is expecting it, will alert her team. Original Note: DCP Cont: Attempting to get patient set up with outpatient infusion next door. Have left a message about the patient at the front desk monitor. Notes from yesterday indicate patient would rather have outpatient infusion. Called Herlinda Mirza at [email or web address], and she gave a different phone number for auth. Number is [phone]. Attempted to call, was on hold, will attempt again. Unable to fax over to the oncology, as fax machine is down, ELIZABETH [employer] funeral [employer] assistant, will deliver referral once form is signed. P: DCP working on getting patient set up with outpatient infusion clinic, will need hospitalist to sign form. Caryl Garcia, NASIR/Mortgage Sales Manager
[2023-02-22 08:26] VITALS: BP 145/89; PULSE 84
[2023-02-22] MEDS: CHLORTHALIDONE 25 MG TABLET PO (08:26)
[2023-02-22] MEDS: GABAPENTIN 300 MG CAPSULE 900 MG PO (08:26)
[2023-02-22] MEDS: METFORMIN XR 500 MG TABLET PO (08:26)
[2023-02-22] MEDS: FUROSEMIDE 20 MG TABLET PO (08:26)
[2023-02-22] MEDS: LOSARTAN 50 MG TABLET PO (08:26)
[2023-02-22 08:27] VITALS: BP 145/89; PULSE 84
[2023-02-22] MEDS: MULTIVITAMIN 1 TABLET 1 TAB PO (08:27)
[2023-02-22] MEDS: carvediloL 12.5 MG TABLET PO (08:27)
[2023-02-22] MEDS: DULOXETINE 20 MG CAPSULE PO (08:27)
[2023-02-22 08:51] LABS: Vancomycin Peak < 5.0 ug/mL (20-40)
[2023-02-22 12:00] VITALS: BP 130/67; PULSE 79; RESP 18; TEMP 36.8; O2SAT 97
--- NOTE | 2023-02-22 12:08 | PT.IPTN ---
Current Diagnoses Sepsis, unspecified organism (02/18/23) Physical Therapy Treatment Note M2 PT-IP Current Condition Start: 02/19/23 15:03 Freq: NEEDED Status: Active Protocol: Document 02/19/23 15:03 ES (Rec: 02/19/23 15:18 ES [id number]) Physical Therapy Current Condition Current Condition Evaluation Date 02/19/23 Treatment Diagnosis Sepsis, LLE cellulitis, acute encephalopathy, weakness Onset Date 02/18/23 M3 PT-IP Subjective Start: 02/19/23 15:03 Freq: NEEDED Status: Active Protocol: Document 02/22/23 12:33 TS (Rec: 02/22/23 12:43 TS [id number]) Subjective Physical Therapy Visit Type Type Treatment Note Visit Start Time 12:08 Visit Stop Time 12:22 Total Visit Minutes 14 Number of PLAQUE MAKER Visits 2 Physical Therapy Visit Comments Patient Comments Pt found resting in chair, spouse in room, reports having less LLE pain but has back pain, pt agreeable to PT. Therapy Pain Assessment Pain When Pain Assessed At Rest Pain Present Pain Present Pain Reported M4 PT-IP Mobility and Gait Start: 02/19/23 15:03 Freq: NEEDED Status: Active Protocol: Document 02/22/23 12:33 TS (Rec: 02/22/23 12:43 TS [id number]) PT-Transfer Assessment Sit to and From Stand Sit to and from Stand Standby Assistance,Use of Upper Extremities Equipment Transfer Assistive Device None,Gait Belt Orthotic/Prosthetic Devices or Brace: No Comments Mobility Comments Pt found resting in chair, agreeable to PT. Sti to stand SBA no AD and no UE support. Pt ambulated in hallway ~500' no AD SBA, some unsteadiness uses occasional wall support for balance and rest. She performed stairs x12 SBA sidestepping with BUE support on single rail, no buckling or LOB noted. Pt was left in room with spouse, awaiting d/c . Gait Assessment Gait Gait Assistance Required: Standby Assistance,1 Person Assist Distance (Feet) 500 Able to Maintain Weight Bearing Status Yes During Gait Assistive Devices Assistive Device None,Gait Belt,Front Wheeled Walker Orthotic/Prosthetic Devices or Brace: No Gait Deviations General Gait Pattern Decreased Stride Length, Decreased Feet Clearance, Narrow Based Gait Factors Limiting Gait Function Factors Limiting Gait Function Decreased Activity Tolerance, Decreased Sensation,Decreased Strength,Pain,Poor Balance Comments Gait Comments Pt ambulated ~500' SBA with no AD, has some unsteadiness uses wall for balance and rest break x1. Stair Climbing Assessment Evaluation Level of Assist On Stairs Standby Assistance Devices Stair Climbing Assistive Devices Right Railing Technique/Endurance Stair Climbing Direction Ascend and Descend Stair Climbing Technique Step to Step Number of Steps Climbed 12 Comments Stair Climbing Comments See mobility comments. PT-Balance Assessment Sitting Balance and Reactions Static Sitting Balance Ability Good Dynamic Sitting Balance Ability Good Standing Balance and Reactions Static Standing Balance Ability Good Dynamic Standing Balance Ability Fair Device Used no ad M5 PT-IP Objective Assessments Start: 02/19/23 15:03 Freq: NEEDED Status: Active Protocol: Document 02/19/23 15:03 ES (Rec: 02/19/23 15:18 ES [id number]) Orientation Orientation/Cognition Level of Alertness Alert Orientation Name,Age,Birthday,Month,Date, Year,Day of Week,Place, Situation Language Function Ability No Deficits Noted Safety Awareness Understands Safety Issues Memory Description No Deficits Noted Gross Range of Motion Upper Extremity ROM Assessment Within Functional Limits Lower Extremity ROM Assessment Within Functional Limits Strength Upper Extremity Strength Assessment Within Functional Limits Lower Extremity Strength Assessment Bilaterally Impaired Comments Strength Comments General weakess BLE's. Unable to perform STS without UE support. Coordination Assessment Gross Coordination Gross Coordination WNL Sensation Assessment Comments Sensation Comments Patient reported she has neuropathy in BLE's in her thighs and feet from cancer treatment. M6 PT-IP Treatment Start: 02/19/23 15:03 Freq: NEEDED Status: Active Protocol: Document 02/22/23 12:33 TS (Rec: 02/22/23 12:43 TS [id number]) Physical Therapy Treatment Education Education Provided Safety M7 PT-IP Assessment and Plan Start: 02/19/23 15:03 Freq: NEEDED Status: Active Protocol: Document 02/22/23 12:33 TS (Rec: 02/22/23 12:43 TS [id number]) PT Summary Assessment and Plan Potential Rehabilitation Potential Good Summary Impairments Pain,ROM,Strength,Balance, Coordination,Sensation, Cognition,Bed Mobility, Transfers,Gait,Activity Tolerance Progress Towards Goals Progressing Toward Goals Assessment Summary Pt is progressing well with her mobility. She performed sit to stand no AD and with no UE support. She progressed her ambulation to ~500' in hallway SBA with no AD, has some unsteadiness and uses wall for support and rest break. She progressed her stairs to SBA with BUE suppor ton single rail x12, no buckling or LOB. PT is recommending pt return home with assist from spouse and HHPT for balance training. Goals Bed Mobility Goal Independent Transfer Goal Cane,Front Wheeled Walker Gait Goal Independent,Cane,Front Wheel Walker Gait Distance 300 Other Goals improve transfers and ambulation without AD 300 ft SBA up/down 15 steps R rail ascending SBA Days to Meet Goals 10 Frequency of Treatment Frequency Of Treatment Once a Day Treatment Plan Physical Therapy Treatment Plan Bed Mobility Training,Transfer Training,Gait Training, Therapeutic Exercise,Balance Retraining,Discharge Planning, Hot or Cold Pack,Neuromuscular Re-ed Other Recommendations and Next Treatment Progress ambulation with LRAD Focus (occasional use of cane at baseline, may need FWW), strengthening ex's. Stair training when appropriate. Weight Bearing Status Weight Bearing Status Weight Bear as Tolerated Recommendations To Nursing Amount of Assist Needed Standby Assistance Discharge Recommendations PT Discharge Recommendations Home with Assistance,Home Health Equipment Needed for Home Before FWW if not safe with SPC/ Discharge without AD althought wants to go home w/o and get from [facility] wednesday. Pt aware of PT recommendation for FWW use for increased safety and stability. Transportation Needs at Discharge Private Vehicle
[2023-02-22] MEDS: cefTRIAXone 1,000 MG in SODIUM CHLORIDE 0.9% 100 ML 200 MG IV (12:43)
--- NOTE | 2023-02-22 16:36 | P.DS_ITS ---
History of Present Illness History of Present Illness Chief complaint: Unable to ambulate Narrative: Per history and physical: Ms. Krishnan is a 77W with PMH DM, HTN, neuropathy who presents to the hospital with leg pain. History is obtained mostly from family at bedside. She has had swelling in the left leg that has worsened over a few weeks. She was seen about a week ago for this and was thought to possibly have chronic venous stasis changes. US for DVT was negative. Over the last day she has developed pain the redness in the foot and leg. She has an ulcer on the plantar side of her left great toe. Her entire toe is erythematous. She has a separate area of erythema on her left woodward area. She was unable to ambulate because of this. In the ED workup was done, vitals notable for temp 102.4, heart rate 100s-110s, respiratory rate 20s, blood pressure 150s/80s, o2 sats 93% on room air. She essentially spends the entire exam not responding to me with a towel over her face, family at bedside said she is acting oddly and confused. Labs reviewed by me notable for WBC 8.5, hgb 13.4, plts 270. Na 132, creatinine 0.81. Lactate 2.2. Procal 0.25. Uric acid 7.1. Left chest xray and fibula xray negative for any acute process. She was ordered for fluids and antibiotics and admitted for further treatment. Discharge Providers Provider Date of admission: 02/18/23 02:46 Discharge Date: 02/22/23 Primary care physician: Aristeo Navas MD Consults: 02/18/23 06:34 Consult to Physical Therapy Evaluate & Treat Comment: Physician Instructions: Evaluate and Treat Discharge provider: Catarina Guerrero MD Summary Hospital Course Discharge Diagnosis: 1. Left lower extremity cellulitis, improving 2. Group a strep bacteremia, follow cultures negative 3. Diabetes mellitus type 2, well controlled at baseline 4. Transaminitis, secondary to GONZALEZ 5. Hyponatremia, improving 6. Hypokalemia resolved 7. Lumbar radiculopathy, stable 8. 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 Over the course of her hos pitalization, patient showed steady improvement in her cellulitis. Blood cultures were positive, 4/4 bottles with high-grade strep bacteremia. Follow-up cultures were obtained and negative at 48 hours. Midline IV catheter was placed on February 22, 2023. Patient was set up for ongoing treatment with 14 days of IV ceftriaxone once daily for her strep bacteremia. She will be coming into the infusion Center for completion. Her PCP will monitor her labs. Patient does have surgery scheduled next month for her lumbar radiculopathy. Patient is discharged in stable condition. Status at Discharge Cognitive/behavioral status at discharge: at baseline, oriented Overall status at discharge: patient is progressing back to baseline Time Spent with Patient Time spent: Greater than 30 minutes (40 minutes spent in education and coordination of discharge) Exam Vital Signs (past 8 hours): - 02/22/23 09:30 02/22/23 12:00 02/22/23 12:00 Temperature 98.2 F Pulse Rate 79 Respiratory Rate 18 Blood Pressure 130/67 Pulse Oximetry 97 97 Oxygen Delivery Method Room Air Room Air Oxygen Flow Rate 0 Oxygen Delivery Method Room Air Oxygen Flow Rate 0 Narrative Exam Narrative: GEN:? Very pleasant elderly female, Alert and oriented x 3, NAD HEENT:NC, Face symmetric CHEST: Respiratory excursions symmetric, CTAB CV: RRR, no M/R/G ABD: Soft, NT/ND, BT present in all 4 quadrants, body habitus limits exam EXTR: warm, well perfused, no C/C, left great toe reveals a blistered area subungual region, decreased mild surrounding erythema, no tenderness to manipulation of the joint, left pretibial area reveals mild pink erythema, once again improved.? Near resolution of the upper thigh erythema. Left lower extremity edema is 3+ throughout SKIN: warm and dry, no rash NEURO: Alert and oriented x 3, nonfocal Objective Labs 02/21/23 04:43 02/21/23 04:43 Labs: Laboratory Results - last 24 hr 02/22/23 07:57 Vancomycin Peak < 5.0 L PENDING SALE TO [facility] Medical History Allergic rhinitis Asthma Cervicalgia Chronic low back pain Ductal carcinoma in situ (DCIS) of left breast (2001) Ductal carcinoma in situ (DCIS) of right breast (2003) Edema Essential hypertension Herniated nucleus pulposus, L4-5 Herniated nucleus pulposus, lumbar Hyperparathyroidism Lumbar foraminal stenosis Lumbosacral radiculopathy at L4 Mixed hyperlipidemia GONZALEZ (nonalcoholic steatohepatitis) Neuropathy Non-toxic multinodular goiter Osteoarthrosis Overweight Port-A-Cath in place (11/23/17) Type 2 diabetes mellitus with polyneuropathy Venous (peripheral) insufficiency Surgical History History of left mastectomy (2001) History of right mastectomy (2003) History of robot-assisted laparoscopic hysterectomy Hx of cholecystectomy Hx of lithotripsy Social History household members: spouse Smoking Status: Never smoker alcohol intake: current Discharge Plan Discharge Plan Patient Disposition: Home Health Service Provider Discharge Comment: You were diagnosed with cellulitis (skin infection) of your leg and blood stream infection. The bacteria was a strep bacteria. As a result, you will need 14 days of IV antibiotics. You will have an IV in place that should last the full 14 days. You will need a lab draw once per week which will be sent to your primary care doctor for review. Please schedule an appointment w/your primary care provider for next week. The infusion center should call you with an appointment time for your antibiotics tomorrow. Return to the ED: Fevers Worsening redness to your leg inability to hold down food/fluids Recommendations: Follow-up with your PCP next week Get a referral to both a lymphedema specialist and a radiology equipment servicer to monitor your current diabetic foot wound Check your feet every day Do not wear open toed shoes Discharge orders & Medications Prescriptions: New ceftriaxone 1 gram Recon Soln 1,000 mg IV Q24H Qty: 14 0RF Continued chlorthalidone 25 mg tablet 25 mg PO DAILY Qty: 90 1RF simvastatin 20 mg tablet 20 mg PO QPM Qty: 90 1RF losartan 100 mg tablet 100 mg PO DAILY Qty: 90 3RF gabapentin 300 mg capsule 900 mg PO TID Qty: 720 3RF metformin 500 mg tablet extended release 24 hr 500 mg PO BID Qty: 180 3RF furosemide 20 mg tablet 20 mg PO DAILY Qty: 90 3RF multivitamin Tablet 1 tab PO DAILY turmeric 1 cap PO DAILY carvedilol 12.5 mg Tablet 12.5 mg PO BID duloxetine 20 mg capsule,delayed release(DR/EC) 20 mg PO DAILY meloxicam 15 mg tablet 15 mg PO DAILY Qty: 90 2RF Discontinued acetaminophen [Tylenol] 325 mg Tablet 3,000 mg DAILY Follow up/Referrals: Aristeo Navas MD [Primary Care Provider] - Diet/Activity/Treatments Diet: Carb-consistent/Diabetic Activity: As tolerated; continue to elevate your leg when sitting/lying Oxygen: N/A Visit Report/Discharge Packet Instructions: Cellulitis, DI for Diabetic Neuropathy, DI for Lymphedema, Bacteremia Stand Alone Forms: Patient Portal/API, Stroke Signs & Symptoms Discharge Data Primary Care Provider: Aristeo Navas V Discharges patient from system. Discharge Date/Time: 02/22/23 14:42
[2023-02-22 21:33] LABS: Osmolality Urine 324 mOsmol/kg (.)
== END 2023-02-22 14:42 | disposition home or self-care (01) | DRG 871 ==
LOC: ED 23:58 → AC 02-18 02:47
PROVIDERS: Family Medicine; Internal Medicine; Admitting Provider Internal Medicine; Emergency Provider Emergency Medicine; PCP Internal Medicine; Referring Provider Emergency Medicine; Visit Provider Internal Medicine
DX: A41.9 Sepsis, unspecified organism (principal); G93.41 Metabolic encephalopathy; L03.116 Cellulitis of left lower limb; E87.1 Hypo-osmolality and hyponatremia; E11.40 Type 2 diabetes mellitus with diabetic neuropathy, unspecified; I10 Essential (primary) hypertension; M54.16 Radiculopathy, lumbar region; B95.0 Streptococcus, group A, as the cause of diseases classified elsewhere; E11.65 Type 2 diabetes mellitus with hyperglycemia; E87.6 Hypokalemia; K75.81 Nonalcoholic steatohepatitis (NASH); E78.2 Mixed hyperlipidemia; Z79.84 Long term (current) use of oral hypoglycemic drugs; Z20.822 Contact with and (suspected) exposure to COVID-19
CPT/HCPCS: 36415; 73590; 73630; 80048; 80053; 80076; 80202; 82962; 83036; 83605; 83690; 83935; 84145; 84300; 84550; 85025; 85651; 86140; 87040; 87086; 87154; 87186; 87205; 93005; 93010; 96365; 96367; 96368; 96375; 97116; 97161; 99284; J0696; J1644; J1815; J2405; J2540; S0077

== ENCOUNTER → 2023-02-28 13:04 | Outpatient (ROUT) | payer OTHER, SELFPAY ==
[2023-02-18 03:36] VITALS: BMI 31.4
[2023-02-28 13:12] LABS: Add Manual Diff / Slide Review NO; Basophils Absolute Auto 100 /uL (0-100); Basophils Percent Auto 0.6 % (0-2); Eosinophils Absolute Auto 300 /uL (0-450); Eosinophils Percent Auto 2.7 % (2-4); Hemoglobin 12.6 g/dL (12.0-16.0); Lymphocytes Absolute Auto 2000 /uL (1100-4500); Lymphocytes Percent Auto 20.4 % (25-40); Mean Corpuscular HGB Conc 35.1 % (30-36); Mean Corpuscular Volume 91.2 fL (80-100); Monocytes Absolute Auto 800 /uL (0-900); Monocytes Percent Auto 7.6 % (3-14); Neutrophils Absolute Auto 6800 /uL (1500-7000); Neutrophils Percent Auto 68.7 % (50-75); Platelet Count 408 X10^3/uL (150-400); Red Blood Cell Count 3.94 X10^6/uL (4.0-5.2); White Blood Cell Count 9.9 X10^3/uL (4.5-11.0)
[2023-02-28 13:21] LABS: Alanine Aminotransferase 52 IU/L (<35); Albumin 4.1 g/dL (3.5-5.0); Albumin Globulin Ratio 1.5 (1.0-2.8); Alkaline Phosphatase 130 U/L (38-126); Aspartate Aminotransferase 45 IU/L (14-36); BUN Creatinine Ratio 22.1 (6-22); Bilirubin Total 0.5 mg/dL (0.2-1.3); Blood Urea Nitrogen 15 mg/dL (7-17); Calcium 9.9 mg/dL (8.4-10.2); Carbon Dioxide 29 mmol/L (22-32); Chloride 96 mmol/L (98-107); Estimated Glomerular Filt Rate > 60 mL/min (>60); Globulin 2.7 g/dL (1.7-4.1); Glucose 187 mg/dL (80-110); HEMOLYSIS < 15 (0-50); Potassium 3.6 mmol/L (3.4-5.1); Sodium 136 mmol/L (137-145); Total Protein 6.8 g/dL (6.3-8.2)
[2023-02-28 13:31] LABS: Erythrocyte Sedimentation Rate 38 MM/HR (0-20)
== END ==
PROVIDERS: PCP Internal Medicine; Visit Provider Family Medicine
DX: L03.90 Cellulitis, unspecified (principal)
CPT/HCPCS: 80053; 85025; 85651

== ENCOUNTER → 2023-03-26 08:50 | Outpatient (CLI) | payer OTHER, SELFPAY ==
[2023-02-18 03:36] VITALS: BMI 31.4
== END ==
PROVIDERS: Family Provider Internal Medicine; PCP Internal Medicine; Referring Provider Internal Medicine; Visit Provider Surgery
DX: E11.621 Type 2 diabetes mellitus with foot ulcer (principal); L97.522 Non-pressure chronic ulcer of other part of left foot with fat layer exposed; L84 Corns and callosities; R60.0 Localized edema; L03.116 Cellulitis of left lower limb; E11.42 Type 2 diabetes mellitus with diabetic polyneuropathy; I87.002 Postthrombotic syndrome without complications of left lower extremity; I10 Essential (primary) hypertension; E21.3 Hyperparathyroidism, unspecified; Z85.3 Personal history of malignant neoplasm of breast; Z90.13 Acquired absence of bilateral breasts and nipples
CPT/HCPCS: 11042; 87070; 87205; 99204; 99214

== ENCOUNTER → 2023-04-02 08:40 | Outpatient (CLI) | payer OTHER, SELFPAY ==
[2023-02-18 03:36] VITALS: BMI 31.4
== END ==
PROVIDERS: Family Provider Internal Medicine; PCP Internal Medicine; Referring Provider Internal Medicine; Visit Provider Physician Assistant
DX: E11.621 Type 2 diabetes mellitus with foot ulcer (principal); L97.529 Non-pressure chronic ulcer of other part of left foot with unspecified severity; L97.522 Non-pressure chronic ulcer of other part of left foot with fat layer exposed; L84 Corns and callosities; E11.40 Type 2 diabetes mellitus with diabetic neuropathy, unspecified; I87.2 Venous insufficiency (chronic) (peripheral)
CPT/HCPCS: 11042; 36415; 84550; 85025; 99214

== ENCOUNTER → 2023-04-02 10:11 | Outpatient (CLI) | payer OTHER, SELFPAY ==
[2023-02-18 03:36] VITALS: BMI 31.4
[2023-04-02 11:13] LABS: Add Manual Diff / Slide Review NO; Basophils Absolute Auto 0 /uL (0-100); Basophils Percent Auto 0.7 % (0-2); Eosinophils Absolute Auto 300 /uL (0-450); Eosinophils Percent Auto 4.2 % (2-4); Hematocrit 37.4 % (36-46); Hemoglobin 12.8 g/dL (12.0-16.0); Lymphocytes Absolute Auto 2500 /uL (1100-4500); Mean Corpuscular HGB Conc 34.2 % (30-36); Mean Corpuscular Hemoglobin 31.2 PG (26-34); Mean Corpuscular Volume 91.2 fL (80-100); Monocytes Absolute Auto 500 /uL (0-900); Monocytes Percent Auto 7.7 % (3-14); Neutrophils Absolute Auto 3500 /uL (1500-7000); Neutrophils Percent Auto 51.4 % (50-75); Platelet Count 295 X10^3/uL (150-400); Red Cell Distribution Width 13.2 % (11.6-14.8); White Blood Cell Count 6.8 X10^3/uL (4.5-11.0)
[2023-04-02 11:47] LABS: Uric Acid 6.3 mg/dL (2.5-6.2)
== END ==
PROVIDERS: Family Provider Internal Medicine; PCP Internal Medicine; Referring Provider Physician Assistant; Visit Provider Physician Assistant
DX: E11.621 Type 2 diabetes mellitus with foot ulcer (principal); L97.529 Non-pressure chronic ulcer of other part of left foot with unspecified severity
CPT/HCPCS: 36415; 84550; 85025

== ENCOUNTER → 2023-04-09 08:36 | Outpatient (CLI) | payer OTHER, SELFPAY ==
[2023-02-18 03:36] VITALS: BMI 31.4
== END ==
PROVIDERS: Family Provider Internal Medicine; PCP Internal Medicine; Referring Provider Internal Medicine; Visit Provider Physician Assistant
DX: E11.621 Type 2 diabetes mellitus with foot ulcer (principal); L97.522 Non-pressure chronic ulcer of other part of left foot with fat layer exposed; L84 Corns and callosities; L53.9 Erythematous condition, unspecified
CPT/HCPCS: 11042; 99214

== ENCOUNTER → 2023-04-15 11:28 | Outpatient (CLI) | payer OTHER, SELFPAY ==
[2023-02-18 03:36] VITALS: BMI 31.4
== END ==
PROVIDERS: Family Provider Internal Medicine; PCP Internal Medicine; Referring Provider Internal Medicine; Visit Provider Physician Assistant
DX: I87.2 Venous insufficiency (chronic) (peripheral) (principal); E11.621 Type 2 diabetes mellitus with foot ulcer; L97.522 Non-pressure chronic ulcer of other part of left foot with fat layer exposed; L84 Corns and callosities; E11.40 Type 2 diabetes mellitus with diabetic neuropathy, unspecified; L53.9 Erythematous condition, unspecified
CPT/HCPCS: 11042; 99213

== ENCOUNTER → 2023-05-14 09:05 | Outpatient (CLI) | payer OTHER, SELFPAY ==
[2023-02-18 03:36] VITALS: BMI 31.4
== END ==
PROVIDERS: Family Provider Internal Medicine; PCP Internal Medicine; Referring Provider Internal Medicine; Visit Provider Physician Assistant
DX: E11.621 Type 2 diabetes mellitus with foot ulcer (principal); L97.521 Non-pressure chronic ulcer of other part of left foot limited to breakdown of skin; L84 Corns and callosities; R60.0 Localized edema; L53.9 Erythematous condition, unspecified; I10 Essential (primary) hypertension; E11.40 Type 2 diabetes mellitus with diabetic neuropathy, unspecified
CPT/HCPCS: 99212

== ENCOUNTER → 2023-06-23 09:55 | Outpatient (CLI) | payer OTHER, SELFPAY ==
[2023-02-18 03:36] VITALS: BMI 31.4
[2023-06-23 11:06] LABS: Hemoglobin A1C% w Est Avg Glu 6.8 % (4.0-6.0)
[2023-06-23 11:24] LABS: Blood Urea Nitrogen 32 mg/dL (7-17); Calcium 11.5 mg/dL (8.4-10.2); Carbon Dioxide 28 mmol/L (22-32); Chloride 99 mmol/L (98-107); Estimated Glomerular Filt Rate 45 mL/min (>60); Glucose 193 mg/dL (80-110); HEMOLYSIS < 15 (0-50); Potassium 4.6 mmol/L (3.4-5.1); Sodium 137 mmol/L (137-145)
[2023-06-23 12:41] LABS: Creatinine Urine Random 76.4 mg/dL
[2023-06-23 12:58] LABS: Appearance Urine UA CLOUDY; Bilirubin Urine UA NEGATIVE (NEGATIVE); Color Urine UA YELLOW; Glucose Urine UA NEGATIVE (Negative); Ketones Urine UA NEGATIVE (NEGATIVE); Leukocyte Esterase Urine UA 2+ (NEGATIVE); Nitrite Urine UA POSITIVE (Negative); Occult Blood Urine UA 2+ (Negative); Protein Urine UA 1+ (Negative); Urobilinogen Urine UA 0.2 E.U./dL (0.2)
[2023-06-23 12:59] LABS: pH Urine UA 5.5 (4.5-8.0)
[2023-06-23 13:02] LABS: Microalbumi Creatinin Ratio Ur 414.9 ug/mg CR (<30); Microalbumin Urine Random 31.7 mg/dL (0-1.6)
[2023-06-23 13:09] LABS: Bacteria Urine Many (>30); Culture Indicated Urine Specimen Cultured; RBC Urine 10-30/HPF (0-5/HPF); Squamous Epithelial Cell Urine 1-5 /HPF (0-5/HPF); WBC Urine >100/HPF (0-5/HPF)
== END ==
PROVIDERS: Family Provider Internal Medicine; PCP Internal Medicine; Referring Provider Internal Medicine; Visit Provider Internal Medicine
DX: E11.42 Type 2 diabetes mellitus with diabetic polyneuropathy (principal); I10 Essential (primary) hypertension; N39.0 Urinary tract infection, site not specified
CPT/HCPCS: 36415; 80048; 81001; 82043; 82570; 83036; 87077; 87086; 87186

== ENCOUNTER → 2023-09-01 09:17 | Outpatient (CLI) | payer OTHER, SELFPAY ==
[2023-02-18 03:36] VITALS: BMI 31.4
[2023-09-01 10:32] LABS: BUN Creatinine Ratio 25.3 (6-22); Blood Urea Nitrogen 22 mg/dL (7-17); Calcium 10.9 mg/dL (8.4-10.2); Carbon Dioxide 28 mmol/L (22-32); Chloride 101 mmol/L (98-107); Estimated Glomerular Filt Rate > 60 mL/min (>60); Glucose 242 mg/dL (80-110); HEMOLYSIS < 15 (0-50); Potassium 4.1 mmol/L (3.4-5.1); Sodium 137 mmol/L (137-145)
[2023-09-01 11:21] LABS: Creatinine Urine Random 152.7 mg/dL
[2023-09-01 11:25] LABS: Microalbumi Creatinin Ratio Ur 7.2 ug/mg CR (<30); Microalbumin Urine Random 1.1 mg/dL (0-1.6)
[2023-09-03 14:08] LABS: Calcium 10.4 mg/dL (8.7-10.3); Parathyroid Hormone, Intact 50 pg/mL (15-65)
== END ==
PROVIDERS: Family Provider Internal Medicine; PCP Internal Medicine; Referring Provider Internal Medicine; Visit Provider Internal Medicine
DX: I10 Essential (primary) hypertension (principal); E11.42 Type 2 diabetes mellitus with diabetic polyneuropathy; E21.3 Hyperparathyroidism, unspecified
CPT/HCPCS: 36415; 80048; 82043; 82310; 82570; 83970

== ENCOUNTER → 2023-10-19 15:16 | Outpatient (CLI) | payer OTHER, SELFPAY ==
[2023-02-18 03:36] VITALS: BMI 31.4
[2023-10-19 15:48] LABS: Add Manual Diff / Slide Review NO; Basophils Absolute Auto 0 /uL (0-100); Basophils Percent Auto 0.7 % (0-2); Eosinophils Absolute Auto 200 /uL (0-450); Eosinophils Percent Auto 2.6 % (2-4); Hematocrit 35.4 % (36-46); Hemoglobin 12.3 g/dL (12.0-16.0); Lymphocytes Absolute Auto 1900 /uL (1100-4500); Lymphocytes Percent Auto 25.2 % (25-40); Mean Corpuscular HGB Conc 34.8 % (30-36); Mean Corpuscular Hemoglobin 31.8 PG (26-34); Mean Corpuscular Volume 91.3 fL (80-100); Monocytes Absolute Auto 700 /uL (0-900); Monocytes Percent Auto 8.9 % (3-14); Neutrophils Absolute Auto 4600 /uL (1500-7000); Neutrophils Percent Auto 62.6 % (50-75); Platelet Count 306 X10^3/uL (150-400); Red Blood Cell Count 3.88 X10^6/uL (4.0-5.2); Red Cell Distribution Width 12.9 % (11.6-14.8); White Blood Cell Count 7.4 X10^3/uL (4.5-11.0)
[2023-10-19 16:06] LABS: Erythrocyte Sedimentation Rate 10 MM/HR (0-20)
[2023-10-19 16:26] LABS: Uric Acid 6.7 mg/dL (2.5-6.2)
== END ==
PROVIDERS: Family Provider Internal Medicine; PCP Internal Medicine; Referring Provider Physician Assistant; Visit Provider Physician Assistant
DX: M79.673 Pain in unspecified foot (principal)
CPT/HCPCS: 36415; 84550; 85025; 85651

== ENCOUNTER → 2023-11-09 10:50 | Outpatient (CLI) | payer OTHER, SELFPAY ==
[2023-10-26 09:42] VITALS: BMI 31.4
[2023-11-09 12:42] LABS: Hemoglobin A1C% w Est Avg Glu 6.7 % (4.0-6.0)
[2023-11-09 13:01] LABS: Aspartate Aminotransferase 44 IU/L (14-36); BUN Creatinine Ratio 20.6 (6-22); Blood Urea Nitrogen 26 mg/dL (7-17); Calcium 10.4 mg/dL (8.4-10.2); Carbon Dioxide 26 mmol/L (22-32); Chloride 98 mmol/L (98-107); Cholesterol 178 mg/dL (140-199); Estimated Glomerular Filt Rate 44 mL/min (>60); Glucose 198 mg/dL (80-110); HDL Cholesterol 36 mg/dL (40-60); HEMOLYSIS < 15 (0-50); LDL Cholesterol Calculated 86 mg/dL (<100); Potassium 4.1 mmol/L (3.4-5.1); Sodium 137 mmol/L (137-145); Triglycerides 282 mg/dL (35-150)
== END ==
PROVIDERS: Family Provider Internal Medicine; PCP Internal Medicine; Referring Provider Internal Medicine; Visit Provider Internal Medicine
DX: E11.42 Type 2 diabetes mellitus with diabetic polyneuropathy (principal); E78.2 Mixed hyperlipidemia; I10 Essential (primary) hypertension
CPT/HCPCS: 36415; 80048; 80061; 83036; 84450

== ENCOUNTER 2023-11-22 16:23 | Emergency (ER) | payer OTHER, SELFPAY ==
[2023-10-26 09:42] VITALS: BMI 31.4
[2023-11-22 16:30] VITALS: BP 205/110; PULSE 78; RESP 16; TEMP 36.4; O2SAT 98; BMI 29.0
[2023-11-22 17:29] LABS: Influenza A - CEPHEID Flu A NEGATIVE (NEGATIVE); Influenza B - CEPHEID Flu B NEGATIVE (NEGATIVE); Respiratory Syncytial Virus Negative (Negative)
[2023-11-22 17:35] LABS: COVID-19 CEPHEID 4-PLEX PCR POSITIVE (Negative)
[2023-11-22 18:16] VITALS: BP 211/106; PULSE 89; RESP 16; TEMP 37.1; O2SAT 99
--- NOTE | 2023-11-22 18:32 | ED_ITS ---
HPI - URI/Sore Throat <Yocasta Wing PA-C - Last Filed: 11/29/23 19:05> General Chief Complaint: Upper Respiratory Symptoms Stated Complaint: Respitory issues sent by [facility] Time Seen by Provider: 11/22/23 17:55 Source: patient Mode of arrival: Wheelchair History of Present Illness HPI Narrative: 78-year-old female presents to the ED with 2 weeks of flu-like symptoms. Patient complains of dry, burning eyes, fatigue, dry and itchy skin. Patient states that she has been experiencing significant nausea and anorexia, on account of which she has been noncompliant with her medications including her blood pressure medications. Patient has had some sporadic vomiting as well. Patient denies chest pain, shortness of breath, lightheadedness, dizziness, abdominal pain, syncope. Related Data Home Medications Medication Instructions Recorded Confirmed multivitamin 1 tab PO DAILY 03/26/22 11/22/23 acetaminophen 500 mg tablet 500 mg PO TID 02/26/23 11/22/23 (Tylenol Extra Strength) alpha lipoic acid 300 mg capsule 300 mg PO BID 04/14/23 11/22/23 carvedilol 12.5 mg tablet 12.5 mg PO BID 11/10/23 11/22/23 Previous Rx's Medication Instructions Recorded meloxicam 15 mg tablet 15 mg PO DAILY #90 tabs 10/15/22 losartan 100 mg tablet 100 mg PO DAILY #90 tabs 01/08/23 metformin 500 mg tablet,extended 500 mg PO BID #180 tabs 01/08/23 release 24 hr semaglutide 7 mg tablet (Rybelsus) 7 mg PO DAILY #90 tabs 04/14/23 duloxetine 20 mg capsule,delayed 20 mg PO DAILY #90 caps 06/23/23 release simvastatin 20 mg tablet 20 mg PO QPM #90 tabs 07/05/23 gabapentin 600 mg tablet 600 mg PO TID #90 tabs 10/19/23 indomethacin 50 mg capsule 50 mg PO TID #30 caps 10/20/23 chlorthalidone 50 mg tablet 50 mg PO DAILY #30 tabs 10/26/23 Allergies Allergy/AdvReac Type Severity Reaction Status Date / Time Sulfa (Sulfonamide Allergy Severe SKING Verified 11/22/23 16:02 Antibiotics) BURNING, [SULFA (SULFONAMIDE RASH ANTIBIOTICS)] codeine [CODEINE] AdvReac Intermediate VOMITING Verified 11/22/23 16:02 hydroxyzine [HYDROXYZINE] AdvReac Intermediate NAUSEA Verified 11/22/23 16:02 Review of Systems <Yocasta Wing PA-C - Last Filed: 11/29/23 19:05> Constitutional Constitutional: Denies chills, Reports fatigue, Denies fever(s), Denies frequent falls, Denies lethargy, Reports poor appetite and Denies weakness Eyes Eyes: Denies change in vision, Denies eye discharge, Reports dry eyes, Denies irritation and Denies loss of vision ENT Ears, Nose, Mouth, and Throat: Denies change in voice, Denies dizziness, Denies neck pain, Denies sore throat and Denies throat swelling Cardiovascular Cardiovascular: Denies chest pain, Denies irregular heart rhythm, Denies lightheadedness, Denies palpitations, Denies dyspnea, Denies dyspnea on exertion and Denies orthopnea Respiratory Respiratory: Denies cough, Denies dyspnea, Denies dyspnea on exertion and Denies wheezing Gastrointestinal Gastrointestinal: Denies abdominal pain, Denies change in bowel habits, Denies diarrhea, Reports nausea and Reports vomiting Musculoskeletal Musculoskeletal: Denies neck pain and Denies numbness Integumentary/Breasts Skin/Breast: Reports dry skin, Reports pruritus, Denies erythema, Denies rash and Denies wounds Neurologic Neurologic: Denies behavioral changes, Denies confusion, Denies dizziness, Denies frequent falls, Denies loss of vision, Denies numbness and Denies weakness Psychiatric Psychiatric: Denies anxiety, Denies behavioral changes, Denies confusion, Denies depression, Denies homicidal ideation and Denies suicidal ideation Endocrine Endocrine: Reports fatigue, Denies flushing and Denies palpitations Hematologic/Lymphatic Hematologic/Lymphatic: Denies easy bruising Allergic/Immunologic Allergic/Immunologic: Denies urticaria, Denies throat swelling and Denies wheezing Patient History <Yocasta Wing PA-C - Last Filed: 11/29/23 19:05> Medical History Left leg cellulitis Venous (peripheral) insufficiency Herniated nucleus pulposus, L4-5 Herniated nucleus pulposus, lumbar Lumbosacral radiculopathy at L4 Lumbar foraminal stenosis JO (nonalcoholic steatohepatitis) Chronic low back pain Overweight Mixed hyperlipidemia Essential hypertension Type 2 diabetes mellitus with polyneuropathy Osteoarthrosis Non-toxic multinodular goiter Cervicalgia Edema Allergic rhinitis Hyperparathyroidism Port-A-Cath in place (11/23/17) Ductal carcinoma in situ (DCIS) of right breast (2003) Ductal carcinoma in situ (DCIS) of left breast (2001) Surgical History S/P total right hip arthroplasty Hx of cholecystectomy Hx of lithotripsy History of robot-assisted laparoscopic hysterectomy History of right mastectomy (2003) History of left mastectomy (2001) Social History household members: spouse Smoking Status: Never smoker alcohol intake: current Smoking Status: Never smoker alcohol intake frequency: a few times a month Substance Use Type: does not use Exam <Yocasta Wing PA-C - Last Filed: 11/29/23 19:05> Narrative Exam Narrative: Const General:?cooperative, healthy appearing and comfortable [facility] Head:?normal to inspection Ears:?hearing grossly normal bilaterally Nose:?external nose normal Face and sinus:?normal facial exam and sinuses nontender Mouth:?oral mucosae normal Throat:?posterior oropharynx normal Eyes General:?appearance normal, both eyes and all related structures Neck Neck:?normal visual inspection and no lymphadenopathy noted Resp Effort & Inspection:?normal respiratory effort Auscultation:?clear to auscultation bilaterally Cardio Rate:?regular rate Rhythm:?regular rhythm Neuro General:?patient alert, patient awake and patient oriented x3 Initial Vital Signs Initial Vital Signs: Vital Signs Temperature 97.5 F L 11/22/23 16:30 Pulse Rate 78 11/22/23 16:30 Respiratory Rate 16 11/22/23 16:30 Blood Pressure 205/110 H 11/22/23 16:30 Pulse Oximetry 98 11/22/23 16:30 Oxygen Delivery Method Room Air 11/22/23 16:30 <Dorie Simons DO - Last Filed: 11/30/23 03:08> Initial Vital Signs Initial Vital Signs: Vital Signs Temperature 97.5 F L 11/22/23 16:30 Pulse Rate 78 11/22/23 16:30 Respiratory Rate 16 11/22/23 16:30 Blood Pressure 205/110 H 11/22/23 16:30 Pulse Oximetry 98 03/04/24 16:30 Oxygen Delivery Method Room Air 11/22/23 16:30 Course <Yocasta Wing PA-C - Last Filed: 11/29/23 19:05> Orders Ordered: Discontinued Medications Ondansetron HCl (Ondansetron 4 Mg Odt) 4 mg SL NOW ONE Stop: 11/22/23 18:26 Last Admin: 11/22/23 18:47 Dose: 4 mg Documented By: RB Vital Signs Vital signs: Vital Signs - 8 hr 11/22/23 16:30 11/22/23 18:16 Temperature 97.5 F L 98.8 F Pulse Rate 78 89 Respiratory Rate 16 16 Blood Pressure 205/110 H 211/106 H Pulse Oximetry 98 99 Oxygen Delivery Method Room Air Room Air <Dorie Simons DO - Last Filed: 11/30/23 03:08> Orders Ordered: Discontinued Medications Ondansetron HCl (Ondansetron 4 Mg Odt) 4 mg SL NOW ONE Stop: 11/22/23 18:26 Last Admin: 11/22/23 18:47 Dose: 4 mg Documented By: RB Vital Signs Vital signs: Vital Signs - 8 hr 11/22/23 16:30 11/22/23 18:16 Temperature 97.5 F L 98.8 F Pulse Rate 78 89 Respiratory Rate 16 16 Blood Pressure 205/110 H 211/106 H Pulse Oximetry 98 99 Oxygen Delivery Method Room Air Room Air MDM - URI/Sore Throat <Yocasta Wing PA-C - Last Filed: 11/29/23 19:05> Lab Data Labs: Lab Results 11/22/23 Range/Units 16:36 SARS-CoV-2 (PCR) Positive H (Negative) Influenza A (RT-PCR) Flu a negative (NEGATIVE) Influenza B (RT-PCR) Flu b negative (NEGATIVE) RSV (PCR) Negative (Negative) MDM Narrative Medical decision making narrative: 78-year-old female presents to the ED with 2 weeks of flu-like symptoms. Patient tested positive for COVID-19 in the ED. patient's symptoms are consistent with COVID-19 symptoms. Recommend increased hydration, skin moisturizing. Recommend supportive care with ibuprofen, Tylenol, lots of rest. Patient was given a dose of Zofran for nausea in the ED. Recommend follow-up with PCP. ED return precautions discussed with patient. Patient verbalized understanding. Medical records reviewed: Yes <Dorie Simons, DO - Last Filed: 11/30/23 03:08> Lab Data Labs: Lab Results 11/22/23 Range/Units 16:36 SARS-CoV-2 (PCR) Positive H (Negative) Influenza A (RT-PCR) Flu a negative (NEGATIVE) Influenza B (RT-PCR) Flu b negative (NEGATIVE) RSV (PCR) Negative (Negative) Discharge Plan Departure Patient Disposition: Home Clinical Impression: COVID-19 Instructions: COVID-19 Activity Restrictions/Additional Instructions: You were evaluated in the ED today for flu-like symptoms. You tested positive for the COVID-19 infection. You have been prescribed Zofran to control her nausea which will enable you to keep down sufficient water and your medications. Your blood pressure was elevated today since you have not been able to take your medications due to the nausea over the last week. You may take Tylenol and ibuprofen for aches and pains. The itchy skin and burning eyes are likely due to dehydration. Please continue to stay well hydrated. You may also use the Refresh lubricating eyedrops which is available [id number]. Please follow-up with your primary care doctor as soon as possible. Return to the ED if you have worsening symptoms, persistent vomiting. Prescriptions: No Action duloxetine 20 mg capsule,delayed release(DR/EC) 20 mg PO DAILY Qty: 90 3RF simvastatin 20 mg tablet 20 mg PO QPM Qty: 90 3RF losartan 100 mg tablet 100 mg PO DAILY Qty: 90 3RF metformin 500 mg tablet extended release 24 hr 500 mg PO BID Qty: 180 3RF chlorthalidone 50 mg tablet 50 mg PO DAILY Qty: 30 2RF multivitamin Tablet 1 tab PO DAILY acetaminophen [Tylenol Extra Strength] 500 mg tablet 500 mg PO TID Rybelsus 7 mg tablet 7 mg PO DAILY Qty: 90 1RF Rx Instructions: start after 3mg dose complete alpha lipoic acid 300 mg capsule 300 mg PO BID gabapentin 600 mg tablet 600 mg PO TID Qty: 90 0RF indomethacin 50 mg capsule 50 mg PO TID Qty: 30 0RF Rx Instructions: administer with food or milk carvedilol 12.5 mg tablet 12.5 mg PO BID meloxicam 15 mg tablet 15 mg PO DAILY Qty: 90 2RF Referrals: Aristeo Navas MD [Primary Care Provider] - Stand Alone Forms: Patient Portal/API ED Sign-out <Dorie Simons DO - Last Filed: 11/30/23 03:08> Cosign ED Attending Natalya Attestation: I was not working this day was not available for consult the locums that was working that day is unfortunately no longer available to sign charts. I have reviewed this chart.
[2023-11-22] MEDS: ONDANSETRON 4 MG ODT SL (18:47)
== END 2023-11-22 19:07 | disposition home or self-care (01) ==
PROVIDERS: Emergency Medicine; Emergency Provider Student in an Organized Health Care Education/Training Program; Family Provider Internal Medicine; PCP Internal Medicine
DX: U07.1 COVID-19 (principal)
CPT/HCPCS: 0241U; 99283

== ENCOUNTER → 2023-12-07 08:37 | Outpatient (CLI) | payer OTHER, SELFPAY ==
[2023-10-26 09:42] VITALS: BMI 31.4
--- NOTE | 2023-12-07 08:38 | DI.NM.S_ITS ---
PROCEDURE: NM BONE 3 PHASE RADIOPHARMACEUTICAL: 20.7 mCi Tc-99m MDP IV. INDICATIONS: right hip pain s/p THR TECHNIQUE: Multiple bone scintigrams were obtained after intravenous injection of Tc-99m MDP, including flow, blood pool, and delayed images centered to the region of interest. COMPARISON: [facility], CR, XR PELVIS WITH LATERAL HIP RIGHT, 10/09/2021, 10:25. [facility], CR, XR PELVIS WITH LATERAL HIP RIGHT, 12/18/2022, 9:46. FINDINGS: A triple phase bone scan was obtained, including flow, blood pool and delayed images centered to the pelvis and hips. The comparison x-ray demonstrates right hip total arthroplasty. The flow and blood pool images demonstrate symmetrical vascular activity to hips bilaterally. Delayed images demonstrate postoperative changes related to right hip arthroplasty. There is low-level increased activity around right hip prosthesis, more in the posterior aspect. Mildly increased activity in the left hip is noted, likely secondary to mild degenerative/arthritic changes. IMPRESSION: 1. Right hip total arthroplasty. Low-level increased activity around right hip prosthesis is nonspecific. Differential diagnoses are postsurgical change versus early prosthesis loosening. 2. Mild degenerative/arthritic changes in the left hip. Dictated by: Pablo Tyler M.D. on 12/08/2023 at 11:45 Approved by: Pablo Tyler M.D. on 12/08/2023 at 11:49
== END ==
PROVIDERS: Family Provider Internal Medicine; PCP Internal Medicine; Referring Provider Internal Medicine; Visit Provider Internal Medicine
DX: M41.9 Scoliosis, unspecified; M25.551 Pain in right hip; Z96.641 Presence of right artificial hip joint; Z87.898 Personal history of other specified conditions
CPT/HCPCS: 78315; A9503

== ENCOUNTER → 2024-02-02 14:49 | Outpatient (CLI) | payer OTHER, SELFPAY ==
[2023-10-26 09:42] VITALS: BMI 31.4
[2024-02-02 15:18] LABS: Appearance Urine UA CLEAR; Bilirubin Urine UA NEGATIVE (NEGATIVE); Color Urine UA YELLOW; Glucose Urine UA NEGATIVE (Negative); Ketones Urine UA TRACE (NEGATIVE); Leukocyte Esterase Urine UA 1+ (NEGATIVE); Nitrite Urine UA NEGATIVE (Negative); Occult Blood Urine UA NEGATIVE (Negative); Protein Urine UA NEGATIVE (Negative); Specific Gravity Urine UA >=1.030 (1.000-1.035); Urobilinogen Urine UA 0.2 E.U./dL (0.2)
[2024-02-02 15:20] LABS: pH Urine UA 5.5 (4.5-8.0)
[2024-02-02 15:33] LABS: Bacteria Urine Few (2-10); Culture Indicated Urine Specimen Cultured; RBC Urine None Seen (0-5/HPF); Renal Epithelial Cells Urine 5-10/HPF (0-1/HPF); Squamous Epithelial Cell Urine 1-5 /HPF (0-5/HPF); Urine Volume 10mL (spun); WBC Urine 5-10/HPF (0-5/HPF)
== END ==
PROVIDERS: Family Provider Internal Medicine; PCP Internal Medicine; Referring Provider Internal Medicine; Visit Provider Internal Medicine
DX: N39.0 Urinary tract infection, site not specified (principal)
CPT/HCPCS: 81001; 87077; 87086

== ENCOUNTER → 2024-04-18 09:37 | Outpatient (CLI) | payer OTHER, SELFPAY ==
[2023-10-26 09:42] VITALS: BMI 31.4
== END ==
PROVIDERS: Family Provider Internal Medicine; PCP Internal Medicine; Visit Provider Physician Assistant Surgical
DX: R30.0 Dysuria (principal)
CPT/HCPCS: 87086

== ENCOUNTER → 2024-04-28 10:16 | Outpatient (CLI) | payer OTHER, SELFPAY ==
[2023-10-26 09:42] VITALS: BMI 31.4
== END ==
PROVIDERS: Family Provider Internal Medicine; PCP Internal Medicine; Visit Provider Physician Assistant Surgical
DX: R39.9 Unspecified symptoms and signs involving the genitourinary system (principal)
CPT/HCPCS: 87077; 87086; 87186

== ENCOUNTER → 2024-05-09 10:16 | Outpatient (CLI) | payer OTHER, SELFPAY ==
[2023-10-26 09:42] VITALS: BMI 31.4
[2024-05-09 12:59] LABS: Hemoglobin A1C% w Est Avg Glu 5.6 % (4.0-6.0)
[2024-05-09 13:00] LABS: BUN Creatinine Ratio 27.1 (6-22); Blood Urea Nitrogen 32 mg/dL (7-17); Calcium 10.7 mg/dL (8.4-10.2); Carbon Dioxide 27 mmol/L (22-32); Chloride 101 mmol/L (98-107); Estimated Glomerular Filt Rate 47 mL/min (>60); Glucose 154 mg/dL (80-110); HEMOLYSIS < 15 (0-50); Potassium 4.3 mmol/L (3.4-5.1); Sodium 137 mmol/L (137-145)
== END ==
LOC: LAB 10:17
PROVIDERS: Family Provider Internal Medicine; PCP Internal Medicine; Referring Provider Internal Medicine; Visit Provider Internal Medicine
DX: E11.42 Type 2 diabetes mellitus with diabetic polyneuropathy (principal)
CPT/HCPCS: 36415; 80048; 83036

== ENCOUNTER → 2024-05-29 16:14 | Outpatient (CLI) | payer OTHER, SELFPAY ==
[2023-10-26 09:42] VITALS: BMI 31.4
[2024-05-29 16:55] LABS: Appearance Urine UA CLEAR; Bilirubin Urine UA NEGATIVE (NEGATIVE); Color Urine UA YELLOW; Glucose Urine UA NEGATIVE (Negative); Ketones Urine UA TRACE (NEGATIVE); Leukocyte Esterase Urine UA 1+ (NEGATIVE); Nitrite Urine UA NEGATIVE (Negative); Occult Blood Urine UA NEGATIVE (Negative); Protein Urine UA NEGATIVE (Negative); Urobilinogen Urine UA 0.2 E.U./dL (0.2)
[2024-05-29 16:58] LABS: pH Urine UA 6.5 (4.5-8.0)
[2024-05-29 17:04] LABS: Bacteria Urine Few (2-10); Mucus Urine 1+ (Negative); RBC Urine 0-1/HPF (0-5/HPF); Squamous Epithelial Cell Urine 5-10 /HPF (0-5/HPF); Urine Volume 10mL (spun); WBC Urine 1-5/HPF (0-5/HPF)
[2024-05-29 17:05] LABS: Culture Indicated Urine Specimen Cultured
== END ==
PROVIDERS: Family Provider Internal Medicine; PCP Internal Medicine; Referring Provider Internal Medicine; Visit Provider Internal Medicine
DX: Z01.818 Encounter for other preprocedural examination (principal)
CPT/HCPCS: 81001; 87086

== ENCOUNTER → 2024-07-20 14:39 | Outpatient (CLI) | payer OTHER, SELFPAY ==
[2023-10-26 09:42] VITALS: BMI 31.4
[2024-07-20 15:09] LABS: Appearance Urine UA CLOUDY; Bilirubin Urine UA NEGATIVE (NEGATIVE); Color Urine UA YELLOW; Glucose Urine UA NEGATIVE (Negative); Ketones Urine UA TRACE (NEGATIVE); Leukocyte Esterase Urine UA 2+ (NEGATIVE); Nitrite Urine UA NEGATIVE (Negative); Occult Blood Urine UA TRACE-INTACT (Negative); Protein Urine UA NEGATIVE (Negative); Specific Gravity Urine UA 1.025 (1.000-1.035); Urobilinogen Urine UA 0.2 E.U./dL (0.2)
[2024-07-20 15:11] LABS: pH Urine UA 5.5 (4.5-8.0)
[2024-07-20 15:16] LABS: Bacteria Urine Few (2-10); Culture Indicated Urine Specimen Cultured; RBC Urine 1-5/HPF (0-5/HPF); Squamous Epithelial Cell Urine 0-1 /HPF (0-5/HPF); Urine Volume 10mL (spun); WBC Urine 5-10/HPF (0-5/HPF)
== END ==
PROVIDERS: Family Provider Internal Medicine; PCP Internal Medicine; Referring Provider Internal Medicine; Visit Provider Internal Medicine
DX: R30.0 Dysuria (principal); C55 Malignant neoplasm of uterus, part unspecified
CPT/HCPCS: 81001; 87077; 87086; 87186

== ENCOUNTER → 2024-10-23 16:50 | Outpatient (CLI) | payer OTHER, SELFPAY ==
[2023-10-26 09:42] VITALS: BMI 31.4
[2024-10-23 17:20] LABS: Hematocrit 38.8 % (36-46); Hemoglobin 13.2 g/dL (12.0-16.0); Mean Corpuscular HGB Conc 34.1 % (30-36); Mean Corpuscular Hemoglobin 31.5 PG (26-34); Mean Corpuscular Volume 92.4 fL (80-100); Platelet Count 318 X10^3/uL (150-400); Red Blood Cell Count 4.19 X10^6/uL (4.0-5.2); Red Cell Distribution Width 13.1 % (11.6-14.8); White Blood Cell Count 8.6 X10^3/uL (4.5-11.0)
[2024-10-23 17:32] LABS: Creatinine Urine Random 100.15 mg/dL
[2024-10-23 17:34] LABS: Hemoglobin A1C% w Est Avg Glu 5.9 % (4.0-6.0)
[2024-10-23 17:37] LABS: Microalbumin Urine Random < 0.6 mg/dL (0-1.6)
[2024-10-23 18:00] LABS: Aspartate Aminotransferase 31 IU/L (14-36); BUN Creatinine Ratio 29.5 (6-22); Blood Urea Nitrogen 41 mg/dL (7-17); Calcium 10.9 mg/dL (8.4-10.2); Carbon Dioxide 28 mmol/L (22-32); Chloride 97 mmol/L (98-107); Cholesterol 236 mg/dL (140-199); Estimated Glomerular Filt Rate 39 mL/min (>60); Glucose 172 mg/dL (80-110); HDL Cholesterol 45 mg/dL (40-60); HEMOLYSIS < 15 (0-50); Potassium 3.5 mmol/L (3.4-5.1); Sodium 136 mmol/L (137-145); Triglycerides 443 mg/dL (35-150)
[2024-10-23 18:30] LABS: TSH w/ Reflex to FT4 0.77 uIU/mL (0.47-4.68)
== END ==
PROVIDERS: Family Provider Internal Medicine; PCP Internal Medicine; Referring Provider Internal Medicine; Visit Provider Internal Medicine
DX: E11.42 Type 2 diabetes mellitus with diabetic polyneuropathy (principal); E78.2 Mixed hyperlipidemia; C54.9 Malignant neoplasm of corpus uteri, unspecified
CPT/HCPCS: 36415; 80048; 80061; 82043; 82570; 83036; 84443; 84450; 85027